=== PATIENT | female | born 1975 | race Caucasian/White ===

== ENCOUNTER 2016-10-08 09:26 | Observation (INO) | payer OTHER ==
[~2016-10-08 09:26] MED LIST: Buffered Lidocaine 1% SYR 3ML* 3 ML/SYR SYRINGE INTRADERM ONE; Dexamethasone IV* 4 MG/ML 1 ML (4 MG) IV SLOW PU ONE; Famotidine IV* 10 MG/ML 2 ML (20 mg) IV ONE
[2016-10-08] MEDS ORDERED: Famotidine IV* 10 MG/ML 2 ML (20 mg) ONE (09:30)
[2016-10-08] MEDS ORDERED: Dexamethasone IV* 4 MG/ML 1 ML (4 MG) ONE (09:30)
[2016-10-08 10:12] LABS: Hematocrit 41 % (35-47); Hemoglobin 13.6 g/dl (12.0-16.0); Mean Corpuscular HGB Conc 34 g/dl (31-36); Mean Corpuscular Hemoglobin 28 pg (27-31); Mean Corpuscular Volume 84 fL (80-97); Mean Platelet Volume 8 um3 (7.4-10.4); Red Blood Count 4.82 10^6/ul (4.0-5.4); Red Cell Distribution Width 13 % (10.5-15); White Blood Count 6.3 10^3/ul (3.5-10.8)
[2016-10-08] MEDS ORDERED: Bupivacaine 0.5% W/EPI SDV* 30 ML VIAL ONE (10:18)
[2016-10-08 10:20] LABS: Manual Entry Verification HAN0055; UR Preg Internal Control QC Line Present
[2016-10-08] MEDS ORDERED: Scopolamine 1.5 mg* PATCH TRANSDERM PRN (11:09)
[2016-10-08] MEDS ORDERED: HYDROmorphone INJ* 1 MG/ML CARPUJECT SYRINGE IV PRN (11:09)
[2016-10-08] MEDS ORDERED: Ondansetron INJ* 2 MG/ML VIAL IV PRN (11:09)
[2016-10-08] MEDS ORDERED: DiMENhydriNATE IV* 50 MG/ML VIAL IV PUSH PRN (11:09)
[2016-10-08] MEDS ORDERED: fentaNYL* 50 MCG/ML 2 ML VIAL (100 MCG VIAL) IV PRN (11:09)
[2016-10-08] MEDS ORDERED: fentaNYL* 50 MCG/ML 2 ML VIAL (100 MCG VIAL) ONE (13:09)
[2016-10-08] MEDS ORDERED: Scopolamine 1.5 mg* PATCH ONE (13:20)
[2016-10-08] MEDS ORDERED: Ondansetron INJ* 2 MG/ML VIAL ONE (13:24)
[2016-10-08] MEDS ORDERED: DiMENhydriNATE IV* 50 MG/ML VIAL ONE (13:34)
[2016-10-08] MEDS ORDERED: Acetaminophen TAB* 325 MG PO PRN (14:45)
[2016-10-08] MEDS ORDERED: Ibuprofen TAB* 600 MG PO PRN (14:45)
[2016-10-08 15:27] LABS: Hematocrit 35 % (35-47); Hemoglobin 11.9 g/dl (12.0-16.0)
[2016-10-08 16:51] VITALS: BP 98/59
--- NOTE | 2016-10-09 04:21 | OP ---
AMENDED REPORT NOW INCLUDES DATE OF OPERATION - ESIGNED BEFORE ADJUSTMENT * DATE OF OPERATION: 10/08/16 - ROOM #353 DATE OF : 73 SURGEON: Paulino Camp MD BRASS BURNISHER: Jovana Walker MD ANESTHESIOLOGIST: Gwyn Gillis MD ANESTHESIA: General endotracheal tube. PRE-OP DIAGNOSES: BRCA2 and family history of ovarian cancer. POST-OP DIAGNOSES: BRCA2 and family history of ovarian cancer plus omental adhesions. OPERATIVE PROCEDURE: Laparoscopy, BSO, and lysis of adhesions. ESTIMATED BLOOD LOSS: 50 cc. SPECIMEN: Includes both tubes and ovaries. FINDINGS: Include on the anterior abdominal wall, an omental adhesions to the anterior abdominal wall. Otherwise, both tubes and ovaries and the uterus appeared normal. The liver surface was smooth. The appendix appeared normal. DESCRIPTION OF PROCEDURE: The patient identified, procedure identified as a laparoscopy and bilateral salpingo-oophorectomy. The patient was taken to the operating room, prepped and draped in the usual fashion in the dorsal lithotomy position under general anesthesia. A sponge stick was placed in the vagina for manipulation. A small infra-umbilical incision was made and carried down through fat, fascia, and peritoneum. An Noman GelPOINT mini retractor was placed and the GelPOINT was placed on top of this. The abdomen was insufflated to 50 mmHg. The 30-degree 5-mm laparoscope was inserted. The LigaSure was inserted through another port site and the omental adhesion was taken down using the LigaSure. The right fallopian tube was grasped and the infundibulopelvic ligament was isolated, ligated using a LigaSure, and then incised. Broad ligament was carried down the same way to the level of the ovarian ligament. This was ligated using the LigaSure and then incised. Some bleeding was noted along the right pelvic side wall and this was found to be from the omental adhesion taken down earlier. This was irrigated and re- grasped and ligated using the bipolar cautery on the LigaSure. Good hemostasis was verified there. The left infundibulopelvic ligament was then isolated and was ligated using a LigaSure and brought down along the side of the ovary down to the level of the ovarian ligament and the tube. This was ligated using the LigaSure and then excised. The Endo Catch bag was placed through one of the trocar sites and both ovaries were placed within the bag. This was brought out through the incision with ease. The bag was opened and the ovaries were removed from the bag and sent for pathology. The GelPOINT mini was re-placed and good hemostasis was verified. Copious irrigation was utilized and suctioned out. The omental bleeding was reinspected and found to be hemostatic. All instruments were removed from the abdomen. The abdomen was deflated with CO2. The fascia was closed using 0 Polysorb in a running fashion and the skin was closed with 4-0 Polysorb in a subcuticular fashion and then glue was applied. All sponge and instrument counts were correct and the patient returned to the recovery room in stable condition. Sponge, instrument, and stick were removed from the vagina. [id number]/[facility] #: [id number] HAO
[2016-10-11] MEDS ORDERED: Scopolamine PATCH Remove* 1 NOTE MISC PATCH OFF ONE (11:10)
--- NOTE | 2016-10-23 02:53 | DS ---
CC: Primary Care Doctor DISCHARGE SUMMARY: DATE OF ADMISSION: 10/08/16 DATE OF DISCHARGE: 10/08/16 PRINCIPAL DIAGNOSES: BRCA2 and family history of ovarian cancer. POST-OP DIAGNOSES: BRCA2 and family history of ovarian cancer. DISPOSITION: The patient was discharged on Motrin and Tylenol, and was not to do any heavy lifting. Call for any fever, pain, or bleeding. HISTORY: This is a 41-year-old with breast cancer, has a BRCA2 mutation, her mother had ovarian cancer. She is having regular cycles. She wished to have risk- reductive surgery, removal of her ovaries. PAST MEDICAL HISTORY: Significant for a previous section and a first trimester miscarriage. MEDICAL PROBLEMS: Include migraine headaches; breast cancer; endometrial polyp removal; section, 2010; thyroidectomy in July of 2013; mastectomy in November of 2015. SOCIAL HISTORY: She does not smoke. REVIEW OF SYSTEMS: Noncontributory. PHYSICAL EXAMINATION: On admission shows blood pressure 112/64, pulse was 76, temp was 98.5. HEENT: Within normal limits. Neck was supple. Abdomen: Soft , nontender. Bowel sounds were normoactive. HOSPITAL COURSE: She was admitted on the , underwent a laparoscopic bilateral salpingo-oophorectomy and lysis of adhesions with 50 cc of blood loss. She tolerated the procedure well, went to recovery room without any complications. Her pathology specimen showed bilateral ovaries with multiple follicular cysts, hemorrhagic corpus luteum, paratubal cysts, fallopian tubes, and no abnormalities and no evidence of cancer or dysplasia. She went home on hospital day 0, day of her surgery, without any complications. [id number]/[facility] #: [id number] [facility]ripp
== END 2016-10-08 18:50 | disposition home or self-care (01) ==
LOC: OR 09:26 → SSU 14:47 → UNDOADMOB 14:47 → UNDODISOB 18:50
PROVIDERS: ADMIT Obstetrics & Gynecology; ATTEND Obstetrics & Gynecology
PROC: 0UT74ZZ Resection of Bilateral Fallopian Tubes, Percutaneous Endoscopic Approach (ICD-10-PCS; 2016-10-08)
PROC: 0UT24ZZ Resection of Bilateral Ovaries, Percutaneous Endoscopic Approach (ICD-10-PCS; principal; 2016-10-08 10:15)
DX: C50.919 Malignant neoplasm of unspecified site of unspecified female breast (principal); Z15.02 Genetic susceptibility to malignant neoplasm of ovary; Z80.41 Family history of malignant neoplasm of ovary
CPT/HCPCS: 36415; 81025; 85014; 85018; 85025; 86850; 86900; 86901; 88305; A9270-GY; G0378; J1100; J1240; J2405; J3010

== ENCOUNTER 2017-01-28 07:06 | Emergency (ER) | payer OTHER ==
[2017-01-28 07:26] VITALS: BP 117/64
--- NOTE | 2017-01-28 07:40 | UC ---
Skin Complaint HPI - HPI Summary HPI Summary: 41 YEAR OLD FEMALE PRESENTS WITH RASH X 3 DAYS. SHE HAS RECENTLY FLOWN BACK FROM [place]. FEELS WARM BUT NO NAUSEA. VOMITTING, DIARRHEA, OR HEADACHES - History of Current Complaint Chief Complaint: UCRash Time Seen by Provider: 01/28/17 07:27 Stated Complaint: RASH Hx Obtained From: Patient Hx Last Menstrual Period: 04/01/16 Onset/Duration: Sudden Onset Skin Exposure Onset/Duration: Days Ago Timing: Constant Onset Severity: Mild Current Severity: Moderate Location: Diffuse Aggravating: Touch Alleviating: Nothing Associated Signs & Symptoms: Positive: Fever - Allergy/Home Medications Allergies/Adverse Reactions: Allergies Allergy/AdvReac Type Severity Reaction Status Date / Time Oxycodone Allergy Severe See Comment Verified 10/08/16 09:45 Hydrocodone Allergy Intermediate SENSITIVITY Verified 10/08/16 09:45 Home Medications: Home Medications Acetaminophen [Acetaminophen ER] 650 mg PO 01/28/17 [History] Review of Systems Constitutional: Fever Skin: Rash Eyes: Negative ENT: Negative Respiratory: Negative Cardiovascular: Negative Gastrointestinal: Negative Genitourinary: Negative Motor: Negative Musculoskeletal: Negative Neurological: Negative All Other Systems Reviewed And Are Negative: Yes PMH/Surg Hx/FS Hx/Imm Hx - Surgical History Surgical History: Yes Surgery Procedure, Year, and Place: C SECTION- 2010-[facility]. 2004-REMOVE ENDOMETRIAL POLYP-[facility]. LEFT [place] [place] B/L mastectomy - Family History Known Family History: Positive: Hypertension, Other - [place] - Social History Alcohol Use: Weekly Alcohol Amount: 1-2 glasses of wine Substance Use Type: None Smoking Status (MU): Never Smoked Tobacco Have You Smoked in the Last Year: No - Immunization History Most Recent Influenza Vaccination: NONE Most Recent Tetanus Shot: 2013 Most Recent Pneumonia Vaccination: NA Physical Exam Triage Information Reviewed: Yes Appearance: Well-Appearing Vital Signs: Initial Vital Signs Temp 37.2 C 01/28/17 07:11 Pulse 97 01/28/17 07:11 Resp 18 01/28/17 07:11 BP 117/64 01/28/17 07:11 Pulse Ox 98 01/28/17 07:11 Vital Signs Reviewed: Yes Eye Exam: Normal ENT Exam: Normal Neck: Positive: Tenderness @ Respiratory Exam: Normal Cardiovascular Exam: Normal Abdominal Exam: Normal Neurological Exam: Normal Skin: Positive: rashes Course/Dx - Diagnoses Provider Diagnoses: RASH Discharge - Discharge Plan Condition: Stable Disposition: HOME Discharge Disposition Comment: HOME Prescriptions: Methylprednisolone [Medrol Dosepak 4 MG*] 4 mg PO .SEE KAYLYN INSTRUCTION #1 tab Triamcinolone 0.1% CREAM(NF) [Kenalog Cream 0.1%(NF)] 1 applic TOPICAL BID #60 tube Patient Education Materials: Acute Rash (ED) Referrals: Amador Villegas MD [Primary Care Provider] - 7 Days
== END 2017-01-28 07:54 | disposition home or self-care (01) ==
LOC: UCEAST 07:06
DX: R21 Rash and other nonspecific skin eruption (principal); Z88.5 Allergy status to narcotic agent
CPT/HCPCS: 99212; G0463

== ENCOUNTER 2017-04-08 19:19 | Emergency (ER) | payer OTHER ==
[2017-04-08 19:25] VITALS: BP 114/71
[2017-04-08] MEDS ORDERED: Ondansetron ODT TAB* 4 MG PO ONE (19:28)
--- NOTE | 2017-04-08 19:42 | UC ---
Headache HPI - HPI Summary HPI Summary: has the worst headache of her life---nausea and vomiting sudden onset at noon today - History Of Current Complaint Chief Complaint: UCHeadamark Stated Complaint: HEADACHE,NAUSEA Time Seen by Provider: 04/08/17 19:25 Hx Obtained From: Patient Hx Last Menstrual Period: 04/01/16 ?: No Onset/Duration: Sudden Onset, Lasting Hours Onset Of Symptoms: Sudden Initially Headache Was: "Worst Headache Ever" Pain Intensity: 10 Pain Scale Used: 0-10 Numeric Timing: Constant Character: Throbbing Location of Headache: Diffuse Aggravating Factor: Nothing Allevating Factors: Nothing Associated Signs And Symptoms: Positive: Nausea, Vomiting - Allergies/Home Medications Allergies/Adverse Reactions: Allergies Allergy/AdvReac Type Severity Reaction Status Date / Time Oxycodone Allergy Severe See Comment Verified 01/28/17 07:50 Hydrocodone Allergy Intermediate SENSITIVITY Verified 01/28/17 07:50 PMH/Surg Hx/FS Hx/Imm Hx Previously Healthy: No Endocrine History: Hypothyroidism Cancer History: Breast Cancer - Surgical History Surgical History: Yes Surgery Procedure, Year, and Place: C SECTION- 2010-[facility]. 2004-REMOVE ENDOMETRIAL POLYP-[facility]. LEFT THYROIDECTOMY 2012[place] [place]. B/L mastectomy - Family History Known Family History: Positive: Hypertension, Other - [place] - Social History Occupation: Unemployed Lives: With Family Alcohol Use: Weekly Alcohol Amount: 1-2 glasses of wine Substance Use Type: None Smoking Status (MU): Never Smoked Tobacco Have You Smoked in the Last Year: No - Immunization History Most Recent Influenza Vaccination: NONE Most Recent Tetanus Shot: 2013 Most Recent Pneumonia Vaccination: NA Review of Systems Constitutional: Negative Skin: Negative Eyes: Negative ENT: Negative Respiratory: Negative Cardiovascular: Negative Gastrointestinal: Vomiting, Nausea Genitourinary: Negative Motor: Negative Neurovascular: Negative Musculoskeletal: Negative Neurological: Headache Psychological: Negative Is Patient Immunocompromised?: Yes All Other Systems Reviewed And Are Negative: Yes Physical Exam Triage Information Reviewed: Yes Appearance: Well-Nourished, Ill-Appearing, Pain Distress Vital Signs: Initial Vital Signs Temp 97 F 04/08/17 19:21 Pulse 75 04/08/17 19:21 Resp 20 04/08/17 19:21 BP 114/71 04/08/17 19:21 Pulse Ox 100 04/08/17 19:21 Vital Signs Reviewed: Yes Eye Exam: Normal Eyes: Positive: Conjunctiva Clear ENT Exam: Normal ENT: Positive: Normal ENT inspection, Hearing grossly normal. Negative: Nasal congestion, Nasal drainage, Trismus, Muffled/hoarse voice Dental Exam: Normal Neck exam: Normal Neck: Positive: Supple, Nontender Respiratory Exam: Normal Respiratory: Positive: Chest non-tender, No respiratory distress, No accessory muscle use Cardiovascular Exam: Normal Cardiovascular: Positive: RRR, Pulses Normal, Brisk Capillary Refill Musculoskeletal Exam: Normal Musculoskeletal: Positive: Strength Intact, ROM Intact, No Edema Neurological Exam: Normal Neurological: Positive: Alert, Muscle Tone Normal Psychological Exam: Normal Skin Exam: Normal Headache Course/Dx - Course Course Of Treatment: Zofran, rest, to ed for higher level of care - Differential Dx/Diagnosis Differential Diagnosis/HQI/PQRI: CVA, Migraine, Subarachnoid Hemorrhage, Temporal Arteritis, Tension Headache, Viral Syndrome Provider Diagnoses: Headache - Physician Notifications Discussed Patient Care With: Mikael Santos Time Discussed With Above Provider: 19:30 Instructed by Provider To: Transfer Discharge - Discharge Plan Condition: Stable Disposition: OTHER Discharge Disposition Comment: to ed Patient Education Materials: Acute Headache (ED) Referrals: Amador Villegas MD [Primary Care Provider] - Additional Instructions: We recommend that you go to the emergency department for higher level of care
== END 2017-04-08 19:35 ==
LOC: UCEAST 19:19
DX: R51 Headache (principal); R11.2 Nausea with vomiting, unspecified; E03.9 Hypothyroidism, unspecified; Z85.3 Personal history of malignant neoplasm of breast; Z90.13 Acquired absence of bilateral breasts and nipples; Z88.5 Allergy status to narcotic agent
CPT/HCPCS: 99212; A9270-GY; G0463

== ENCOUNTER 2017-04-08 19:57 | Emergency (ER) | payer OTHER ==
[2017-04-08 21:19] LABS: Hematocrit 38 % (35-47); Mean Corpuscular HGB Conc 34 g/dl (31-36); Mean Corpuscular Hemoglobin 28 pg (27-31); Mean Corpuscular Volume 83 fL (80-97); Mean Platelet Volume 7 um3 (7.4-10.4); Red Blood Count 4.63 10^6/ul (4.0-5.4); Red Cell Distribution Width 13 % (10.5-15); White Blood Count 6.7 10^3/ul (3.5-10.8)
[2017-04-08 21:34] LABS: Albumin 4.4 g/dL (3.2-5.2); BUN/Creatinine Ratio 21.3 (8-20); Calcium 10.3 mg/dL (8.6-10.3); EGFR Non-African American 84.7 (>60); Potassium 3.9 mmol/L (3.5-5.0); Total Bilirubin 0.4 mg/dL (0.2-1.0); Total Protein 7.4 g/dL (6.4-8.9)
[2017-04-08 22:39] LABS: Erythrocyte Sed Rate 23 mm/Hr (0-14)
[2017-04-08] MEDS ORDERED: Ketorolac INJ* 30 MG/ML 1 ML VIAL IV PUSH ONE (23:38)
[2017-04-08] MEDS ORDERED: diPHENhydraMINE IV* 50 MG/ML 1 ml VIAL (BENADRYL) IV ONE (23:39)
[2017-04-08] MEDS ORDERED: Metoclopramide IV* 5 MG/ML 2 ML VIAL IV ONE (23:39)
[2017-04-09] MEDS ORDERED: Ondansetron ODT TAB* 4 MG PO ONE (01:44)
[2017-04-09 02:06] VITALS: BP 86/61
--- NOTE | 2017-04-09 05:57 | ED ---
Mary Larkin Emily, scribed for Mikael Santos MD on 04/08/17 at 2337 . Headache - HPI Summary HPI Summary: This patient is a 41 year old F presenting to [facility] referred by convenient care accompanied by family with a chief complaint of headache that started around 1300. Started gradually this afternoon. Pt took 2 acetaminophen 650mg. She has had previous migraines, but not regularly or with associated nausea. The CC is described as ache behind the eyes The patient rates the pain 8/10 in severity. Symptoms alleviated by nothing. Patient reports vomiting (twice), chills, and neck pain. Patient denies fever, diaphoresis, slurred speech, photophobia, abdominal pain, and leg pain. Patient denies head trauma. PMHx includes asthma, bilateral mastectomy, and bilateral oophorectomy. - History Of Current Complaint Chief Complaint: EDHeadache Stated Complaint: HEADACHE Time Seen by Provider: 04/08/17 23:20 Hx Obtained From: Patient Hx Last Menstrual Period: 04/01/16 Onset/Duration: Gradual Onset, Started hours ago, Still Present Currently Pain Is: Current Pain Scale(0-10)= - 8 Timing: Constant, Hours Location of Headache: Other: - Behind eyes Allevating Factors: Nothing Associated Signs And Symptoms: Vomiting, Other (Noted In Comments) - Chills, neck pain - Allergies/Home Medications Allergies/Adverse Reactions: Allergies Allergy/AdvReac Type Severity Reaction Status Date / Time Oxycodone Allergy Severe See Comment Verified 01/28/17 07:50 Hydrocodone Allergy Intermediate SENSITIVITY Verified 01/28/17 07:50 PMH/Surg Hx/FS Hx/Imm Hx Previously Healthy: No Endocrine/Hematology History: Reports: Hx Thyroid Disease - LEFT THYROID REMOVED - 2012 Denies: Hx Diabetes, Hx Sickle Cell Disease, Hx Anemia Cardiovascular History: Denies: Hx Hypertension, Other Cardiovascular Problems/Disorders Respiratory History: Denies: Hx Asthma, Hx Chronic Obstructive Pulmonary Disease (COPD), Other Respiratory Problems/Disorders GI History: Denies: Hx Jaundice, Hx Ulcer, Other GI Disorders History: Denies: Other Problems/Disorders Musculoskeletal History: Denies: Other Musculoskeletal History Sensory History: Denies: Hx Contacts or Glasses, Hx Hearing Aid Opthamlomology History: Denies: Hx Contacts or Glasses Neurological History: Reports: Hx Headaches - ONCE A MONTH, Hx Migraine - OCCASSIONALLY Denies: Other Neuro Impairments/Disorders - Cancer History Cancer Type, Location and Year: thyroid, lt breast ca - Surgical History Surgery Procedure, Year, and Place: C SECTION- 2010-[place]. 2004-REMOVE ENDOMETRIAL POLYP-. LEFT TH[place]ROID[place]OM[place] 2012[place] [place] B/L mastectomy. B/L oophorectomy Hx Anesthesia Reactions: No Infectious Disease History: No Infectious Disease History: Denies: Hx Clostridium Difficile, Hx Hepatitis, Hx Human Immunodeficiency Virus (HIV), Hx of Known/Suspected MRSA, Hx Shingles, Hx Tuberculosis, Hx Known/ Suspected VRE, Hx Known/Suspected VRSA, History Other Infectious Disease, Traveled Outside the [place] in Last 30 Days - Family History Known Family History: Positive: Hypertension, Other - [place] - Social History Occupation: Unemployed Lives: With Family Alcohol Use: Weekly Alcohol Amount: 1-2 glasses of wine Substance Use Type: Reports: None Smoking Status (MU): Never Smoked Tobacco Have You Smoked in the Last Year: No Review of Systems Positive: Chills. Negative: Fever, Skin Diaphoresis Negative: Photophobia Positive: Abdominal Pain, Vomiting Positive: Other - Negative leg pain Positive: Headache. Negative: Slurred Speech All Other Systems Reviewed And Are Negative: Yes Physical Exam - Summary Physical Exam Summary: The patient is well-nourished in no acute distress and in no acute pain. The skin is warm and dry and skin color reflects adequate perfusion. HEENT: The head is normocephalic and atraumatic. The pupils are equal and reactive. The conjunctivae are clear and without drainage. Nares are patent and without drainage. Mouth reveals moist mucous membranes and the throat is without erythema and exudate. The external ears are intact. The ear canals are patent and without drainage. The tympanic membranes are intact. Not photophobic. Neck is supple with full range of motion and non-tender. There are no carotid bruits. There is no neck vein distension. No nuchal rigidity. Respiratory: Chest is non-tender. Lungs are clear to auscultation and breath sounds are symmetrical and equal. Cardiovascular: Heart is regular rate and rhythm. There is no murmur or rub auscultated. There is no peripheral edema and pulses are symmetrical and equal. Abdomen: The abdomen is soft and non-tender. There are normal bowel sounds heard in all four quadrants and there is no organomegaly palpated. Musculoskeletal: There is no back pain noted. Extremities are non-tender with full range of motion. There is good capillary refill. There is no peripheral edema or calf tenderness elicited. Neurological: Patient is alert and oriented to person, place and time. The patient has symmetrical motor strength in all four extremities. Cranial nerves are grossly intact. Deep tendon reflexes are symmetrical and equal in all four extremities. Psychiatric: The patient has an appropriate affect and does not exhibit any anxiety or depression. Triage Information Reviewed: Yes Vital Signs On Initial Exam: Initial Vitals Temp Pulse Resp BP Pulse Ox 96.4 F 72 16 112/62 100 04/08/17 20:05 04/08/17 20:05 04/08/17 20:05 04/08/17 20:05 04/08/17 20:05 Vital Signs Reviewed: Yes - [place] Coma Scale Coma Scale Total: 15 Diagnostics - Vital Signs Vital Signs Temp Pulse Resp BP Pulse Ox 04/08/17 22:49 61 94 04/08/17 22:47 101/64 04/08/17 20:06 96.4 F 62 16 112/62 100 04/08/17 20:05 96.4 F 72 16 112/62 100 - Laboratory Lab Results: Lab Results 04/08/17 04/08/17 04/08/17 Range/Units 21:10 21:10 21:10 WBC 6.7 (3.5-10.8) 10^3/ul RBC 4.63 (4.0-5.4) 10^6/ul Hgb 13.0 (12.0-16.0) g/dl Hct 38 (35-47) % MCV 83 (80-97) fL MCH 28 (27-31) pg MCHC 34 (31-36) g/dl RDW 13 (10.5-15) % Plt Count 293 (150-450) 10^3/ul MPV 7 L (7.4-10.4) um3 Neut % (Auto) 70.2 (38-83) % Lymph % (Auto) 20.7 L (25-47) % Nance % (Auto) 7.4 (1-9) % Eos % (Auto) 1.2 (0-6) % Baso % (Auto) 0.5 (0-2) % Absolute Neuts (auto) 4.7 (1.5-7.7) 10^3/ul Absolute Lymphs (auto) 1.4 (1.0-4.8) 10^3/ul Absolute Monos (auto) 0.5 (0-0.8) 10^3/ul Absolute Eos (auto) 0.1 (0-0.6) 10^3/ul Absolute Basos (auto) 0 (0-0.2) 10^3/ul Absolute Nucleated RBC 0.01 10^3/ul Nucleated RBC % 0.1 ESR 23 H (0-14) mm/Hr INR (Anticoag Therapy) 0.88 L (0.89-1.11) Sodium 137 (133-145) mmol/L Potassium 3.9 (3.5-5.0) mmol/L Chloride 100 L (101-111) mmol/L Carbon Dioxide 31 (22-32) mmol/L Anion Gap 6 (2-11) mmol/L BUN 16 (6-24) mg/dL Creatinine 0.75 (0.51-0.95) mg/dL Est GFR ( Amer) 109.0 (>60) Est GFR (Non-Af Amer) 84.7 (>60) BUN/Creatinine Ratio 21.3 H (8-20) Glucose 115 H (70-100) mg/dL Calcium 10.3 (8.6-10.3) mg/dL Total Bilirubin 0.40 (0.2-1.0) mg/dL AST 19 (13-39) U/L ALT 22 (7-52) U/L Alkaline Phosphatase 65 (34-104) U/L Total Protein 7.4 (6.4-8.9) g/dL Albumin 4.4 (3.2-5.2) g/dL Globulin 3.0 (2-4) g/dL Albumin/Globulin Ratio 1.5 (1-3) Result Diagrams: 04/08/17 21:10 04/08/17 21:10 Lab Statement: Any lab studies that have been ordered have been reviewed, and results considered in the medical decision making process. - CT Head CT Interpretation: No Acute Changes - Findings: 1. There is no intracranial bleed, extra-axial fluid collection, mass effect, midline shift, hydrocephalus, acute territorial infarct or depressed skull fracture evident. 2. The visualized portions of the orbits, paranasal sinuses and mastoid air cells are grossly unremarkable. ED physician has reviewed this radiology report and agrees. CT Interpretation Completed By: Radiologist Headache Course/Dx - Course Course Of Treatment: This patient is a 41 year old F presenting to [facility] referred by convenient care accompanied by family with a chief complaint of headache that started around 1300. Started gradually this afternoon. Pt took 2 acetaminophen 650mg. She has had previous migraines, but not regularly or with associated nausea. The CC is described as ache behind the eyes The patient rates the pain 8/10 in severity. Symptoms alleviated by nothing. Patient reports vomiting (twice), chills, and neck pain. Patient denies fever, diaphoresis, slurred speech, photophobia, abdominal pain, and leg pain. Patient denies head trauma. PMHx includes asthma, bilateral mastectomy, and bilateral oophorectomy. Physical Exam Findings. Not photophobic. No nuchal rigidity. Medical Decision Making. The head CT read by radiologist. Findings: 1. There is no intracranial bleed, extra-axial fluid collection, mass effect, midline shift, hydrocephalus, acute territorial infarct or depressed skull fracture evident. 2. The visualized portions of the orbits, paranasal sinuses and mastoid air cells are grossly unremarkable. ED physician has reviewed this radiology report and agrees. In the ED course the patient was given Benadryl IV , Toradol Injection, Reglan IV, and Zofran. Patient will be discharged with follow up from Dr. Villegas. The patient is agreeable with this plan. - Diagnoses Differential Diagnosis/HQI/PQRI: Subarachnoid Hemorrhage Provider Diagnoses: Headache Discharge - Discharge Plan Condition: Stable Disposition: HOME Patient Education Materials: General Headache (ED) Referrals: Amador Villegas MD [Primary Care Provider] - 3 Days Additional Instructions: RETURN TO THE EMERGENCY DEPARTMENT FOR CHANGING OR WORSENING SYMPTOMS. The documentation as recorded by the Mary dale Emily accurately reflects the service I personally performed and the decisions made by , Mikael Santos MD.
--- NOTE | 2017-04-09 07:48 | RAD ---
INDICATION: "Worst headache of life" COMPARISON: None. TECHNIQUE: Contiguous axial sections of the brain were obtained from the skull base to the vertex without contrast. FINDINGS: The ventricles, cisterns and sulci are within normal limits. The camacho-white matter differentiation is adequately maintained and there is no sulcal effacement. No significant focal abnormality or mass effect is present. There is no evidence for intracranial hemorrhage. No significant focal osseous abnormality is present. The visualized portion of the paranasal sinuses and mastoid air cells appear clear. IMPRESSION: Normal CT of the brain.
== END 2017-04-09 02:07 | disposition home or self-care (01) ==
LOC: ED 19:57
DX: J45.909 Unspecified asthma, uncomplicated (principal); Z88.5 Allergy status to narcotic agent
CPT/HCPCS: 36415; 70450; 80053; 85025; 85610; 85652; 96374; 96375; 99283; A9270-GY; J1200; J1885; J2765

== ENCOUNTER 2017-10-06 06:31 | Day surgery (SDC) | payer OTHER ==
[~2017-10-06 06:31] MED LIST changes: +Buffered Lidocaine 0.9% SYRIN* 5 ML/SYR SYRINGE INTRADERM ONE; -Buffered Lidocaine 1% SYR 3ML* 3 ML/SYR SYRINGE INTRADERM ONE; -Dexamethasone IV* 4 MG/ML 1 ML (4 MG) IV SLOW PU ONE; -Famotidine IV* 10 MG/ML 2 ML (20 mg) IV ONE
[2017-10-06] MEDS ORDERED: Bupivacaine 0.25% SDV* 30 ML ONE (07:13)
[2017-10-06] MEDS ORDERED: Midazolam* 1 MG/ML 2 ML VIAL (2 MG) ONE (07:18)
[2017-10-06] MEDS ORDERED: fentaNYL* 50 MCG/ML 2 ML VIAL (100 MCG VIAL) ONE (07:18)
[2017-10-06] MEDS ORDERED: Ondansetron INJ* 2 MG/ML VIAL ONE (07:25)
[2017-10-06] MEDS ORDERED: Dexamethasone IV* 4 MG/ML 1 ML (4 MG) ONE (07:35)
[2017-10-06] MEDS ORDERED: Naloxone* 0.4 MG/ML 1 ML VIAL IV PRN (08:06)
[2017-10-06 08:34] VITALS: BP 100/69
--- NOTE | 2017-10-06 18:07 | OP ---
DATE OF OPERATION: 10/06/17 [facility] DATE OF : 73 SURGEON: Trent Thornton MD PLANNING AIDE: YONATHAN Guzman ANESTHESIOLOGIST: Dr. Hartley. ANESTHESIA: Local MAC. PRE-OP DIAGNOSIS: Right carpal tunnel syndrome. POST-OP DIAGNOSIS: Right carpal tunnel syndrome. OPERATIVE PROCEDURE: Right open carpal tunnel release. INDICATIONS: Ginger has had progressive symptoms. She has had electrodiagnostic studies. We talked about risks and benefits. She wanted to proceed with surgery. ESTIMATED BLOOD LOSS: 2 mL. COMPLICATIONS: None. FINDINGS: As expected. DESCRIPTION OF PROCEDURE: Ginger was seen in the preoperative holding area. The correct side, site and procedure were identified. We came back to the operating room where the arm was prepped and draped in the usual fashion. A time-out was performed. I began by making a 2 to 3 cm incision in a standard location for an open carpal tunnel release. Dissection was carried down through the subcutaneous tissue and palmar fascia. The transverse carpal ligament was released just off the radial aspect off the hook of the hamate. The release was carried out from distal to proximal. When I got proximal, I released the subcutaneous tissue and fascia and retracted this volarly and ulnarly with Iveth retractor. I then released the remainder of the transverse carpal ligament and the distal antebrachial fascia under direct visualization to a level several centimeters proximal to the wrist flexion crease. I then checked the decompression. There was absolutely no compression on the nerve distally or proximally. We irrigated out the wound. The skin was closed with 4-0 nylon. The wound was dressed with Xeroform, 4x4's, sterile Webril, and an Malcom wrap. She was woken up and taken to the recovery room in stable condition. [id number]/[facility] #: [id number] [facility]
== END 2017-10-06 08:55 | disposition home or self-care (01) ==
LOC: OREAST 06:31
PROVIDERS: ATTEND Orthopaedic Surgery Hand Surgery
DX: G56.01 Carpal tunnel syndrome, right upper limb (principal); E03.9 Hypothyroidism, unspecified; R01.1 Cardiac murmur, unspecified; Z85.3 Personal history of malignant neoplasm of breast; Z85.850 Personal history of malignant neoplasm of thyroid
CPT/HCPCS: J1100; J2250; J2405; J3010

== ENCOUNTER → 2019-01-04 10:50 | Day surgery (SDC) | payer OTHER ==
[~2019-01-04 10:50] MED LIST changes: +Benzocaine/Butamben/Tetracain (CETACAINE - SINGLE USE) 5 gm TOPICAL ONE; -Buffered Lidocaine 0.9% SYRIN* 5 ML/SYR SYRINGE INTRADERM ONE; +Buffered Lidocaine 1% SYRIN* 1 ML/SYRINGE INTRADERM ONE; +Dexamethasone IV* 4 MG/ML 1 ML (4 MG) IV SLOW PU ONE; +Dexamethasone IV* 4 MG/ML 1 ML (4 MG) ONE; +DiMENhydriNATE IV* 50 MG/ML VIAL ONE; +Famotidine IV* 10 MG/ML 2 ML (20 mg) IV ONE; +Famotidine IV* 10 MG/ML 2 ML (20 mg) ONE; +Ketorolac INJ* 30 MG/ML 1 ML VIAL ONE; +Lactated Ringers 1000 ML Bag* 1,000 ML IV SCH; +Levalbuterol 0.63MG/3ML NEB* UNIT OF USE INH ONE; +Lidocaine 2% PF * 5 ML VIAL ONE; +Midazolam* 1 MG/ML 5 ML VIAL (5 MG) ONE; +Ondansetron ODT TAB* 4 MG ONE; +Ondansetron TAB* 4 MG PO ONE; +PROCHLORPERAZINE INJ 5 MG/ML 2 ML VIAL ONE; +Propofol* 10 MG/ML 20 ML BTL ONE; +Succinylcholine* 20 MG/ML 10 ML VIAL ONE; +fentaNYL* 50 MCG/ML 2 ML VIAL (100 MCG VIAL) ONE
[2019-01-04 17:20] VITALS: BP 122/75
--- NOTE | 2019-01-04 20:21 | PRO ---
BRONCHOSCOPY REPORT: DATE OF PROCEDURE: 01/04/19 - [facility] PROCEDURE PERFORMED: Bronchoscopy with endobronchial ultrasound-guided fine needle aspiration of mediastinal and hilar nodes. PREPROCEDURAL DIAGNOSES: 1. Lymphadenopathy. 2. History of breast cancer. ANESTHESIA: General anesthesia. ANESTHESIOLOGIST: Dr. Holloway. DESCRIPTION OF PROCEDURE: Informed consent was obtained from the patient prior to the procedure after all the risks and benefits were thoroughly explained. Appropriate time-out was performed prior to the procedure.The patient was intubated with size 8.5 endotracheal tube. The patient was lying supine on the operating room table. A flexible Olympus bronchoscope was inserted through ET tube for airway inspection. ET tube positioning confirmed to be 2 cm above the level of tammy. No endobronchial lesions were noted. Bronchoscope was then withdrawn. EBUS bronchoscope was then inserted. Station R4 was accessed with 5 passes. Last pass would reveal lymphatic tissue with granulomas. Station 7 was also accessed with 6 passes. Rapid on-site evaluation revealed lymphatic tissue and evidence of granulomas on the last pass. L4 was also accessed with two passes. R10 was accessed with three passes. No malignant cells were noted on rapid on-site evaluation. Rest of the specimen was placed in CytoLyt. The patient tolerated the procedure well. The patient was extubated and seen in Recovery in optimal condition. [id number]/[facility] #: [id number] [facility]
== END | disposition home or self-care (01) ==
LOC: OR 10:50
PROVIDERS: ATTEND Internal Medicine
DX: R59.0 Localized enlarged lymph nodes (principal); L92.9 Granulomatous disorder of the skin and subcutaneous tissue, unspecified; Z85.3 Personal history of malignant neoplasm of breast; Z85.850 Personal history of malignant neoplasm of thyroid; Z88.5 Allergy status to narcotic agent
CPT/HCPCS: 88172; 88173; 88177; 88305; A9270-GY; J0330; J0780; J1100; J1240; J1885; J2250; J2704; J3010

== ENCOUNTER 2019-01-19 06:38 | Inpatient (IN) | payer OTHER ==
[~2019-01-19 06:38] MED LIST changes: -Benzocaine/Butamben/Tetracain (CETACAINE - SINGLE USE) 5 gm TOPICAL ONE; -Dexamethasone IV* 4 MG/ML 1 ML (4 MG) ONE; -DiMENhydriNATE IV* 50 MG/ML VIAL ONE; -Famotidine IV* 10 MG/ML 2 ML (20 mg) ONE; -Ketorolac INJ* 30 MG/ML 1 ML VIAL ONE; -Levalbuterol 0.63MG/3ML NEB* UNIT OF USE INH ONE; -Lidocaine 2% PF * 5 ML VIAL ONE; -Midazolam* 1 MG/ML 5 ML VIAL (5 MG) ONE; -Ondansetron ODT TAB* 4 MG ONE; -Ondansetron TAB* 4 MG PO ONE; -PROCHLORPERAZINE INJ 5 MG/ML 2 ML VIAL ONE; -Propofol* 10 MG/ML 20 ML BTL ONE; +Scopolamine 1.5 mg* PATCH TRANSDERM ONE; -Succinylcholine* 20 MG/ML 10 ML VIAL ONE; -fentaNYL* 50 MCG/ML 2 ML VIAL (100 MCG VIAL) ONE
--- OUTSIDE RECORDS SUMMARY | 2019-01-19 06:40 | XMS REPORT | Continuity of Care Document ---
:1975 External Reference #:[id number] Author Name Shreya Yee Care Team Providers Name Role Phone Amador Villegas MD Primary Care Physician Unavailable Payers Date Identification Numbers Payment Provider Subscriber Policy Number: [id number] [employer] Emeka Cultrera PayID: [id number] [address] [place] [address] Expires: 2017 Policy Number: [id number] [employer] Emeka Cultrera PayID: [id number] [address] [place] [address] Family History Date Family Member(s) Observation Comments General Colitis General Psoriasis General Mother was on Lyrica for Nephew with methylmalonic 10 years aciduria Onset: (age 45 General Breast Cancer Maternal Aunt Years) Father due to Prostate () - At age 67 Cancer Mother Ovarian Cancer Mother due to Ovarian () - At age 75 Cancer Mother Rheumatoid Arthritis Mother Fibromyalgia Siblings 1 Social History Type Date Description Comments Sex Unknown Marital Status Lives With Spouse Lives With Children Occupation Unemployed ETOH Use 07/13/2017 Currently consumes alcohol Tobacco Use Start: Unknown Patient has never smoked Recreational Drug Use Never Used Drugs Smoking Status Reviewed: 01/11/19 Patient has never smoked Exercise Type/Frequency Exercises regularly Allergies, Adverse Reactions, Alerts Active Allergies Reaction Severity Comments Date Oxycodone Short of breath 07/13/2017 Hydrocodone dizziness, nausea 07/13/2017 Medications Active Medications SIG Qnty Indications Ordering Date Provider Meloxicam take one tab 30tabs R70.0 Gwyn Mathur, 12/14/2018 7.5mg Tablets twice daily as M.D. needed for pain, avoid other nsaids Levothyroxine Sodium 1 by mouth every Unknown day 75mcg Tablets Omeprazole 1 tab daily Unknown 20mg Capsules DR Calcium + D3 1 by mouth twice Unknown daily [id number] Tablets Multivitamin Adults once daily Unknown Tablets Melatonin 1 tab by mouth at Unknown 10mg Capsules bedtime as needed for insomnia History Medications Tramadol HCL 1-2 tablets by 30tabs rTent Thornton MD 10/06/2017 - 50mg mouth every 6 12/14/2018 Tablets hours as needed pain Vital Signs Date Vital Result Comment 01/11/2019 2:29pm Height 61 inches 5'1" Weight 150.12 lb Heart Rate 106 /min BP Systolic Sitting 112 mmHg Rue reg cuff BP Diastolic Sitting 72 mmHg Rue reg cuff Respiratory Rate 18 /min O2 % BldC Oximetry 98 % On Ra BMI (Body Mass Index) 28.4 kg/m2 01/11/2019 10:40am Height 61 inches 5'1" Weight 153.00 lb Heart Rate 72 /min Respiratory Rate 16 /min Body Temperature 97.2 F BMI (Body Mass Index) 28.9 kg/m2 12/29/2018 6:55am Height 61 inches 5'1" Weight 153.00 lb Heart Rate 72 /min BP Systolic Sitting 118 mmHg Rue regular cuff BP Diastolic Sitting 80 mmHg Rue regular cuff Respiratory Rate 12 /min O2 % BldC Oximetry 96 % BMI (Body Mass Index) 28.9 kg/m2 Neck Circumference in inches 13.25 12/14/2018 8:00am Height 61 inches 5'1" Weight 151.38 lb Heart Rate 84 /min BP Systolic Sitting 118 mmHg BP Diastolic Sitting 78 mmHg Pain Level 8 O2 % BldC Oximetry 98 % BMI (Body Mass Index) 28.6 kg/m2 10/19/2017 8:32am Height 61 inches 5'1" Weight 150.00 lb Heart Rate 62 /min Respiratory Rate 15 /min Body Temperature 98.2 F Pain Level 2 BMI (Body Mass Index) 28.3 kg/m2 09/20/2017 2:28pm Height 61 inches 5'1" Weight 150.25 lb Heart Rate 91 /min BP Systolic 110 mmHg BP Diastolic 70 mmHg Respiratory Rate 16 /min Body Temperature 97.2 F Pain Level 0 BMI (Body Mass Index) 28.4 kg/m2 08/12/2017 8:26am Height 61 inches 5'1" Weight 145.00 lb Heart Rate 86 /min BP Systolic 102 mmHg BP Diastolic 72 mmHg Respiratory Rate 16 /min Body Temperature 98.9 F Pain Level 3 BMI (Body Mass Index) 27.4 kg/m2 07/13/2017 11:16am Height 61 inches 5'1" Weight 143.00 lb Heart Rate 93 /min BP Systolic 98 mmHg BP Diastolic 64 mmHg Body Temperature 97.1 F Pain Level 1 BMI (Body Mass Index) 27.0 kg/m2 Results Test Date Facility Test Result H/L Range Note Laboratory test 01/04/2019 [facility] Cytology Non-Systems Administration Analyst SEE RESULT [address] [place] [address] [phone] Laboratory test 12/26/2018 [facility] Point of Care 73 mg/dL N 70-100 [address] [place] [address] [phone] Laboratory test 12/19/2018 [facility] Pathology See Comment [address] [address] [phone] Cytology Non-Systems Administration Analyst SEE RESULT BELOW 4 Laboratory test 12/19/2018 [facility] Cytology SEE RESULT [address] Non-Systems [place] [address] [phone] Anca AB Ser If 12/14/2018 [facility] C-Anca Negative Negative [address] [place] [address] [phone] P-Anca Negative Negative 6 Laboratory test 12/14/2018 [facility] Rheumatoid 35 IU/mL High <[address] [place] [address] [phone] Cyclic Citrullinated Pep Igg <15.6 U 7 Celiac Hla 12/14/2018 [facility] Hla-Dqa1 SEE BELOW [address] [place] [address] [phone] Hla-DQB1 SEE BELOW 9 Celiac Gene Pairs Present? No Celiac Gene Interpretation See Comment 10 Hla B27 12/14/2018 [facility] Hla B27 Negative [address] [place] [address] [phone] Hla B27 Interp See Comment 12 Laboratory test 12/14/2018 [facility] Erythrocyte Sed 32 mm/Hr High 0-[address] [place] [address] [phone] C Reactive Protein 5.76 mg/L N <8.01 Creatine Kinase(CK) 70 U/L N 10-223 Ssa/SSB Abs Igg 12/14/2018 [facility] SS-A/Ro Antibody <0.2 U [address] [place] [address] [phone] SS-B/La Antibody <0.2 U 14 Celiac Panel 12/14/2018 [facility] Tissue Transglutaminase <1.2 U/mL [address] [place] [address] [phone] Immunoglobulin A 92 mg/dL 61 - 356 Celiac Interpretation See Comment 16 Laboratory 12/14/2018 [facility] Aso Negative <200 17 test finding [address] (Antistreptolysin O) IU/mL Iu/[place] [address] Titer [phone] Nuclear AB (Kim) By Ifa Igg <1:80 (Negative) 18 Tick-Borne Panel 12/14/2018 [facility] Babesia Negative Negative PCR Blood [address] [place] [address] [phone] Babesia ducani Negative Negative Babesia divergens/Mo-1 Negative Negative 19 Anaplasma phagocytophilum Negative Negative Ehrlichia chaffeensis Negative Negative Ehrlichia ewingii/canis Negative Negative Ehrlichia muris eauclairensis Negative Negative 20 B. miyamotoi PCR, B Negative Negative 21 Laboratory 12/14/2018 [facility] Lyme Screen W/ Negative Negative test finding [address] [place] [address] [phone] Laboratory 01/02/2018 [facility] Hemoglobin A1c 5.5 % N 4.0- 5.6 22 test finding [address] (Glyco HGB) [place] [address] [phone] Laboratory 04/29/2016 [facility] Surgical SEE RESULT 23, test finding [address] Pathology BELOW [address] [place] [address] [phone] 1 SEE RESULT BELOW Name: SOCORRO PAZ : [address]: Brittny Almanza MD Acct: [id number] Unit: [id number] AGE: 43 Location: OR Re01/04/19 SEX: F Status: REG SDC SPEC: [id number] KRANTHI: 01/04/19-[address]: Brittny Almanza MD REQ: [id number] RECD: 01/04/19-1526 STATUS: SOUT _ ORDERED: FNA-IMG GUID BX/4, CY ADEQ-ADDL P/8, LEVEL 4/4, CYTO ADEQ-1ST P/4 FINAL DIAGNOSIS ( 1. Lymph node, R4, Endobronchial ultrasound guided fine needle aspiration: -- Benign ciliated bronchial epithelium, few loosely formed epithelioid granulomas, connective tissue, and lymphoid tissue. --No evidence of metastatic neoplasia identified. 2. 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 -- Benign lymphoid tissue. -- No evidence of metastatic neoplasia identified. 3. Lymph node, L4, Endobronchial ultrasound guided fine needle aspiration: -- Benign ciliated bronchial epithelium only. 4. Lymph node, R10, Endobronchial ultrasound guided fine needle aspiration: -- Benign ciliated bronchial epithelium, fragments of dense fibrous connective tissue, and lymphoid tissue. 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 The development of a sarcoid-like noncaseating granulomatous lymphadenitis in patient's with a history of or in the process of breast cancer CONTINUED ON NEXT PAGE DEPARTMENT OF PATHOLOGY, [address] [place] [address] Edi Pace M.D. Director [facility] # [id number] RUN DATE: 01/05/19 [facility] LAB LIVE PAGE 2 Patient: SOCORRO PAZ [id number] (Continued) SPECIMEN COMMENTS (Continued) therapy is well-documented and occurs in approximately 6.5% of patients with incidental positive PET scan findings (some demonstrate high SUV). While a malignant process not represented here cannot be entirely excluded, the findings can be considered compatible with the clinical and imaging findings. A cell block was prepared in the evaluation of this specimen. Smears and cell block reveal similar findings. #1. LYMPH NODE - US GUIDED ENDOBRONCHIAL R-4 LYMPH NODE FINE NEEDLE ASPIRATION, #2. LYMPH NODE - US GUIDED ENDOBRONCHIAL ST-7 LYMPH NODE FINE NEEDLE ASPIRATION, #3. LYMPH NODE - US GUIDED ENDOBRONCHIAL L-4 LYMPH NODE FINE NEEDLE ASPIRATION, #4. LYMPH NODE - US GUIDED ENDOBRONCHIAL R-10 LYMPH NODE FINE NEEDLE ASPIRATION CLINICAL HISTORY #1) R-4 lymph node. #2) Station-7 lymph node. #3) L-4 lymph node. #4) R-10 Lymph node. IMMEDIATE INTERPRETATION 1. Passes 1 2-inadequate, passes 2-4 adequate. 2. Passes 1-4 inadequate, passes 5 6-adequate. 3. Passes 1 2-inadequate. 4. Passes 1 3-inadequate, pass 2-adequate. GROSS DESCRIPTION #1) US guided endobronchial fine needle aspiration x 5 pass(es) with 9 alcohol fixed slides and needle rinse in formalin for cell block. #2) US guided endobronchial fine needle aspiration x 6 pass(es) with 12 alcohol fixed slides and needle rinse in formalin for cell block. #3) US guided endobronchial fine needle aspiration x 2 pass(es) with 6 alcohol fixed slides and needle rinse in formalin for cell block. #4) US guided endobronchial fine needle aspiration x 3 pass(es) with 6 alcohol fixed slides and needle rinse in formalin for cell block. CONTINUED ON NEXT PAGE DEPARTMENT OF PATHOLOGY, [address] [place] [address] Edi Pace M.D. Director [facility] # [id number] RUN DATE: 01/05/19 [facility] LAB LIVE PAGE 3 Patient: SOCORRO PAZ [id number] (Continued) GROSS DESCRIPTION (Continued) Signed by and Reported on: Edi Pace MD 02/16 1344 END OF REPORT DEPARTMENT OF PATHOLOGY, [address] [place] [address] Edi Pace M.D. Director [facility] # [id number] 2 Acds Block 1 Operator: [id number] H2BR HER2, Breast Tumor, FISH,Tissue Result Summary: Negative Interpretation: There is no evidence of HER2 (ERBB2) gene amplification in this tumor sample. According to current ASCO/CAP guidelines for HER2 testing in breast cancer, dual-probe in situ hybridization (ALVIN) results indicating a HER2/centromere ratio less than 2.0 and an average HER2 copy number less than 4.0 signals per cell are interpreted as ALVIN negative ("Group 5") (1). References: 1. Jessica et al., J Clin Oncol, 36(20):7374-6800, 2018 Result: nuc alvin(D17Z1,HER2)x2 HER2/D17Z1 ratio: 1.08 Average HER2 signals per cell: 2.0 Average D17Z1 signals per cell: 1.9 Reason for Referral: adenocarcinoma Specimen: Tissue, Paraffin Source: Lymph node Tissue ID: [id number] Fixative: Formalin Method: FISH using probes for HER2 (17q12) and a chromosome 17 centromere (D17Z1) control probe ([employer] Two technologists score signals in 60 total nuclei from invasive or metastatic tumor after confirmation of probe performance by concurrent controls. Additional Information and Disclaimer: Laboratory Developed Test (LDT). This test was developed and its performance characteristics determined by [facility] in a manner consistent with CLIA requirements. It is intended as an adjunct to existing prognostic clinical and pathologic information for breast cancer patients. This test is not intended to diagnose or screen for breast cancer. Since only a portion of the tumor was tested, it is possible that this result may not represent the entire tumor population. Per ASCO/CAP guidelines, HER2 FISH test results are valid for non-decalcified paraffin embedded specimens fixed in 10% neutral buffered formalin between 6 and 72 hours. Results from specimens fixed outside these parameters should be interpreted accordingly. Result Released By: Gwyn Gore M.D., Ph.D. Test Performed by: [address] [address] 4 SEE RESULT BELOW Name: JACKSONSOCORROMiguel Angel PINTO : [address]: Nicholas MCMANUS Acct: [id number] Unit: [id number] AGE: 43 Location: Re12/19/18 SEX: F Status: REG REF SPEC: [id number] KRANTHI: 12/19/18-[address]: Nicholas MCMANUS REQ: [id number] RECD: 12/19/18-1534 STATUS: VISHNU WALSH DR: Jacoby Millan MD _ ORDERED: FNA-IMG GUID BX, LEVEL 4, CYTO ADEQ-1ST P, IMMUNO-FIRST, IMMUNO- ADDL, IMMUNO-QUANT/3 ADDENDUM HER2, Breast Tumor, FISH, Tissue has been performed at [facility], [place], [place]. The testing reveals: Received: 24 Dec 2018 15:43 Reported: 29 Dec 2018 16:01 Result Summary: Negative Interpretation There is no evidence of HER2 (ERBB2) gene amplification in this tumor sample. According to current ASCO/CAP guidelines for HER2 testing in breast cancer, dual-probe in situ hybridization (ALVIN) results indicating a HER2/centromere ratio less than 2.0 and an average HER2 copy number less than 4.0 signals per cell are interpreted as ALVIN negative ("Group 5") (1). References: 1. Jessica et al., J Clin Oncol, 36(20):5192-1269, 2018 Result: nuc alvin(D17Z1,HER2)x2 HER2/D17Z1 ratio: 1.08 Average HER2 signals per cell: 2.0 Average D17Z1 signals per cell: 1.9 Reason for Referral: adenocarcinoma Specimen: Tissue, Paraffin Source: Lymph node Tissue ID: [id number] CONTINUED ON NEXT PAGE DEPARTMENT OF PATHOLOGY, [address] [place] [address] Edi Pace M.D. Director [facility] # [id number] RUN DATE: 01/02/19 [facility] LAB LIVE PAGE 2 Patient: LESLIEDAVISSOCORRO [id number] (Continued) ADDENDUM (Continued) Fixative: Formalin Method FISH using probes for HER2 (17q12) and a chromosome 17 centromere (D17Z1) control probe ([employer] Two technologists score signals in 60 total nuclei from invasive or metastatic tumor after confirmation of probe performance by concurrent controls. Disclaimer Laboratory Developed Test (LDT). This test was developed and its performance characteristics determined by [facility] in a manner consistent with CLIA requirements. It is intended as an adjunct to existing prognostic clinical and pathologic information for breast cancer patients. This test is not intended to diagnose or screen for breast cancer. Since only a portion of the tumor was tested, it is possible that this result may not represent the entire tumor population. Per ASCO/CAP guidelines, HER2 FISH test results are valid for non-decalcified paraffin embedded specimens fixed in 10% neutral buffered formalin between 6 and 72 hours. Results from specimens fixed outside these parameters should be interpreted accordingly. Released By Gwyn Gore M.D., Ph.D. Addendum Signed (signature on file) Edi Pace MD 1132 Addendum: The following immunochemical stains are performed with appropriate controls on formalin fixed cell block material. ER positive, 2???3 +, greater than 90% of tumor AZ positive, 2???3 +, 5% of tumor HER-2 indeterminate (2+) Thyroglobulin negative TTF-1 negative The morphologic features and immunochemical staining pattern supports a diagnosis of metastatic ductal adenocarcinoma of breast. Gene amplification studies for HER-2 by FISH are pending and will be reported in an addendum. Dr. Garcia has reviewed this case and concurs. CONTINUED ON NEXT PAGE DEPARTMENT OF PATHOLOGY, [address] [place] [address] Edi Pace M.D. Director [facility] # [id number] RUN DATE: 01/02/19 [facility] LAB LIVE PAGE 3 Patient: SOCORRO PAZ [id number] (Continued) ADDENDUM (Continued) Addendum Signed (signature on file) Edi Pace MD 0942 FINAL DIAGNOSIS Axillary lymph node, left, ultrasound guided fine needle aspiration: -- Malignant. -- Metastatic adenocarcinoma. See comment. Comment: The aspirate smears demonstrate disordered variably cohesive cytologically malignant epithelial elements with round to oval nuclei with irregular nuclear contours and prominent nucleoli. Specific features of thyroid carcinoma are not identified. The morphologic features are most compatible with metastatic ductal carcinoma of breast origin. Confirmatory histochemical stains including hormone receptor studies are pending on formalin fixed cell block material and will be reported in an addendum. A cell block was prepared in the evaluation of this specimen. Smears and cell block reveal similar findings. A. AXILLARY LEFT - US GUIDED LEFT AXILLARY LYMPH NODE FINE NEEDLE ASPIRATION CLINICAL HISTORY Intraductal carcinoma left breast, thyroid cancer. CONTINUED ON NEXT PAGE DEPARTMENT OF PATHOLOGY, [address] [place] [address] Edi Pace M.D. Director [facility] # [id number] RUN DATE: 01/02/19 [facility] LAB LIVE PAGE 4 Patient: JACKSONSOCORROMiguel Angel LERMAIA [id number] (Continued) IMMEDIATE INTERPRETATION (Continued) IMMEDIATE INTERPRETATION Pass 1-adequate, pass 2-additional material GROSS DESCRIPTION Ultrasound guided, fine needle aspiration x 2 passes with 1 alcohol fixed slide(s) and needle rinse in formalin for cell block. Signed by and Reported on: Edi Pace MD 1053 END OF REPORT DEPARTMENT OF PATHOLOGY, [address] [place] [address] Edi Pace M.D. Director [facility] # [id number] 5 SEE RESULT BELOW Name: SOCORRO PAZ : [address]: Nicholas MCMANUS Acct: [id number] Unit: [id number] AGE: 43 Location: SP Re12/19/18 SEX: F Status: REG REF SPEC: [id number] KRANTHI: 12/19/18-7205 [facility] DR: Nicholas MCMANUS REQ: [id number] RECD: 12/19/181535 STATUS: VISHNU WALSH DR: Jacoby Millan MD _ ORDERED: FNA-IMG GUID BX, LEVEL 4, CYTO ADEQ-1ST P, IMMUNO-FIRST, IMMUNO- ADDL, IMMUNO-QUANT/3 ADDENDUM Addendum: The following immunochemical stains are performed with appropriate controls on formalin fixed cell block material. ER positive, 2???3 +, greater than 90% of tumor AZ positive, 2???3 +, 5% of tumor HER-2 indeterminate (2+) Thyroglobulin negative TTF-1 negative The morphologic features and immunochemical staining pattern supports a diagnosis of metastatic ductal adenocarcinoma of breast. Gene amplification studies for HER-2 by FISH are pending and will be reported in an addendum. Dr. Garcia has reviewed this case and concurs. Addendum Signed (signature on file) Edi Pace MD 0942 FINAL DIAGNOSIS Axillary lymph node, left, ultrasound guided fine needle aspiration: -- Malignant. -- Metastatic adenocarcinoma. See comment. CONTINUED ON NEXT PAGE DEPARTMENT OF PATHOLOGY, [address] [place] [address] Edi Pace M.D. Director [facility] # [id number] RUN DATE: 12/21/18 [facility] LAB LIVE PAGE 2 Patient: SOCORRO PAZ [id number] (Continued) FINAL DIAGNOSIS (Continued) Comment: The aspirate smears demonstrate disordered variably cohesive cytologically malignant epithelial elements with round to oval nuclei with irregular nuclear contours and prominent nucleoli. Specific features of thyroid carcinoma are not identified. The morphologic features are most compatible with metastatic ductal carcinoma of breast origin. Confirmatory histochemical stains including hormone receptor studies are pending on formalin fixed cell block material and will be reported in an addendum. A cell block was prepared in the evaluation of this specimen. Smears and cell block reveal similar findings. A. AXILLARY LEFT - US GUIDED LEFT AXILLARY LYMPH NODE FINE NEEDLE ASPIRATION CLINICAL HISTORY Intraductal carcinoma left breast, thyroid cancer. IMMEDIATE INTERPRETATION Pass 1-adequate, pass 2-additional material GROSS DESCRIPTION Ultrasound guided, fine needle aspiration x 2 passes with 1 alcohol fixed slide(s) and needle rinse in formalin for cell block. Signed by and Reported on: Edi Pace MD 1053 END OF REPORT DEPARTMENT OF PATHOLOGY, [address] [place] [address] Edi Pace M.D. Director [facility] # [id number] 6 Negative for cANCA and pANCA patterns by immunofluorescence. ADDITIONAL INFORMATION This test was developed and its performance characteristics determined by [facility] in a manner consistent with CLIA requirements. This test has not been cleared or approved by the U.S. Food and Drug Administration. Test Performed by: [facility] - [address] [address] 7 REFERENCE VALUE <20.0 (Negative) Test Performed by: [facility] - [address] [address] 8 RESULT: 01:02,01:02 REFERENCE VALUE Not Applicable 9 RESULT: 06:02,06:04 DQ Serologic Equivalent: 6,6 REFERENCE VALUE Not Applicable 10 The absence of HLA celiac permissive genes would make the presence of celiac disease unlikely. ADDITIONAL INFORMATION Method: Molecular typing of HLA antigens performed using reverse SSOP and/or SSP methods, reported as serological equivalents and low to medium resolution molecular values. Performing Laboratory CLIA# [id number] Test Performed by: [facility] - [address] [address] 11 REFERENCE VALUE Not Applicable 12 RESULT: HLA-B27 antigen was not detected. ADDITIONAL INFORMATION Method: Flow Cytometry Performing Laboratory CLIA# [id number] Test Performed by: [facility] - [facility] [address] [place] [address] 13 REFERENCE VALUE <1.0 (Negative) 14 REFERENCE VALUE <1.0 (Negative) Test Performed by: [facility] [place] [address] 15 REFERENCE VALUE <4.0 (Negative) Test Performed by: [facility] [place] [address] 16 Negative serology. Celiac disease unlikely. However, approximately 10% of patients with celiac disease are seronegative. Also, patients who are already adhering to a gluten-free diet may be seronegative. If celiac disease is highly clinically suspected, consider HLA-DQ typing. Test Performed by: [facility] [place] [address] 17 Normal values may vary with age, season and geographic area. Titers above upper limits may be indicative of infection, however only a two dilution rise in titer is required to be considered significant. ASO titer will usually rise above upper limits within one week of exposure, increase to peak levels at 3-5 weeks and return to baseline level at 6-12 twelve months. 18 <1:80 (Negative) REFERENCE VALUE <1:80 (Negative) Test Performed by: [facility] [email or web address] [address] [place] [address] 19 ADDITIONAL INFORMATION This test was developed and its performance characteristics determined by [facility] in a manner consistent with CLIA requirements. This test has not been cleared or approved by the U.S. Food and Drug Administration. 20 ADDITIONAL INFORMATION This test was developed and its performance characteristics determined by [facility] in a manner consistent with CLIA requirements. This test has not been cleared or approved by the U.S. Food and Drug Administration. 21 ADDITIONAL INFORMATION This test was developed and its performance characteristics determined by [facility] in a manner consistent with CLIA requirements. This test has not been cleared or approved by the U.S. Food and Drug Administration. Test Performed by: [facility] - [address] [address] 22 Therapeutic target for the treatment of diabetes mellitus patients is <7% HBA1C, and in selective patients <6.0%. Please refer to [place] [employer] diabetic care guidelines for further information. 23 [id number] 24 SEE RESULT BELOW Name: SOCORRO PAZ : [address]: Janak Pina MD Acct: [id number] Unit: [id number] AGE: 40 Location: [facility] Re04/29/16 SEX: F Status: REG [facility] SPEC: [id number] KRANTHI: 04/29/160833 [facility] DR: Janak Pina MD REQ: [id number] RECD: 04/29/168 STATUS: VISHNU WALSH DR: Janak Villegas MD _ ORDERED: LEVEL I/2, LEVEL IV/2 COMMENTS: [id number] FINAL DIAGNOSIS 1. Breast, right biology internship, excision: Foreign body as described above (Gross diagnosis). 2. Skin, right breast, scar revision: Skin and subcutaneous tissue with foreign body giant cell reaction. 3. Breast, left biology internship, excision: Foreign body as described above (Gross diagnosis). 4. Skin, left breast, scar revision: Skin and subcutaneous tissue with foreign body giant cell reaction. PRE-OPERATIVE DIAGNOSIS Status post bilateral mastectomies GROSS DESCRIPTION 1. The specimen is received fresh labeled, Right Breast Tissue Pick Pulling Machine Tender, and consists of a 14.5 x 12.0 by up to 5.0 cm translucent ovoid saline implant. The outer surface is granular camacho-white. The following inscription is identified: [facility] 550. The remaining inscription is indecipherable. Per established hospital medical staff protocol, no tissue is submitted. Gross only. 2. The specimen is received in formalin labeled, Right Mastectomy Scar, and consists of an 18.5 by up to 0.6 cm enriquez-pink wrinkled elongated skin ellipse excised to a maximum depth of 1.8 cm. Received separately in the same container is a 3.4 x 3.1 x 0.7 cm aggregate of yellow irregular fibrofatty soft tissue fragments. The skin is inked and textiles sales representative CONTINUED ON NEXT PAGE * ML=Testing performed at Main Lab DEPARTMENT OF PATHOLOGY, [address] [place] [address] Edi Pace M.D. Director [facility] # [id number] RUN DATE: 04/30/16 [facility] LAB LIVE PAGE 2 Patient: SOCORRO PAZ [id number] (Continued) GROSS DESCRIPTION (Continued) GROSS DESCRIPTION (Continued) sections are submitted in one cassette. 3. The specimen is received fresh labeled, Left Breast Tissue Pick Pulling Machine Tender, and consists of a 14.5 x 12.0 by up to 5.0 cm translucent ovoid saline implant. The outer surface is granular camacho-white. The following inscription is identified: [facility] [address] The remaining inscription is indecipherable. Per established hospital medical staff protocol, no tissue is submitted. Gross only. 4. The specimen is received in formalin labeled, Left Mastectomy Scar, and consists of a 20.0 by up to 0.8 cm enriquez-pink wrinkled elongated skin ellipse excised to a maximum depth of 0.9 cm. Received separately in the same container is a 4.4 x 3.5 x 0.8 cm aggregate of yellow irregular fibrofatty soft tissue fragments. The skin is inked and textiles sales representative sections are submitted in one cassette. Signed (signature on file) Luciana Garcia MD 1517 END OF REPORT * ML=Testing performed at Main Lab DEPARTMENT OF PATHOLOGY, [address] [place] [address] Edi Pace M.D. Director [facility] # [id number] Procedures Date Code Description Status 08/15/2018 540359952 Bone Mineral Density Test Completed 10/06/2017 81117 Carpal Tunnel Release Completed 10/06/2017 28257 Carpal Tunnel Release Completed 12/15/2015 07377 Mastectomy Simple Complete Completed 10/27/2015 94978085 Mammogram Completed 10/23/2015 93381542 Mammogram Completed 05/02/2013 80241 ECHO Transthoracic, Real-Time 2D With Doppler And Completed Color Flow Encounters Type Date Location Provider Dx Diagnosis Office Visit 12/29/2018 Pulmonology And Brittny Archie, R59.0 Localized enlarged 7:30a Sleep Services Of lymph nodes [facility] Office Visit 12/14/2018 Rheumatology Gwyn Mathur, R70.0 Elevated erythrocyte 8:00a [facility] sedimentation rate R76.0 Raised antibody titer M06.4 Inflammatory polyarthropathy M25.551 Pain in right hip M25.561 Pain in right knee M54.5 Low back pain 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 bilateral upper limbs Plan of Treatment Future Appointment(s):01/25/2019 3:45 pm - Maggi Miller MD at [facility]01/19/2019 8:30 am - YONATHAN Watkins at [facility]01/19/2019 8:30 am - Maggi Miller MD at [facility]01/25/2019 3:40 pm - Gwyn Mathur M.D. at [facility]01/11/2019 - Brittny Almanza, MDR59.0 Localized enlarged lymph nodesFollow up:PRN
--- OUTSIDE RECORDS SUMMARY | 2019-01-19 06:40 | XMS REPORT | Continuity of Care Document ---
:1975 External Reference #:[id number] Author Name Johnna Luna Care Team Providers Name Role Phone Amador Villegas MD Primary Care Physician Unavailable Payers Date Identification Numbers Payment Provider Subscriber Policy Number: [id number] [employer] Emeka Cultrera PayID: [id number] [address] [place] [address] Expires: 2017 Policy Number: [id number] [employer] Emeka Cultrera PayID: [id number] [address] [place] [address] Family History Date Family Member(s) Observation Comments [...] D3 1 by mouth twice Unknown daily [id number] Tablets Multivitamin Adults once daily Unknown Tablets Melatonin 1 tab by mouth at Unknown 10mg Capsules bedtime as needed for insomnia History Medications Tramadol HCL 1-2 tablets by 30tabs Trent Thornton MD 10/06/2017 - 50mg mouth every 6 12/14/2018 Tablets hours as needed pain Vital Signs Date Vital Result Comment 01/11/2019 10:40am Height 61 inches 5'1" Weight [...] Result H/L Range Note Laboratory test 01/04/2019 [facility] Cytology Non-[facility] SEE RESULT [address] [place] [address] [phone] Laboratory test 12/26/2018 [facility] Point of Care 73 mg/dL N 70-[address] Glucose [place], [place] [address] [phone] Laboratory test 12/19/2018 [facility] Pathology See Comment [address] Miscellaneous Test [place], [place] [address] [phone] Cytology Non-[facility] SEE RESULT BELOW 4 Laboratory test 12/19/2018 [facility] Cytology SEE RESULT [address] Non-[facility] BELOW [place], [place] [address] [phone] Anca AB Ser If 12/14/2018 [facility] C-Anca Negative Negative [address] [place], [place] [address] [phone] P-Anca Negative Negative 6 Laboratory test 12/14/2018 [facility] Rheumatoid 35 IU/mL High <[address] [place] [address] [phone] Cyclic Citrullinated Pep Igg <15.6 U 7 Celiac Hla 12/14/2018 [facility] Hla-Dqa1 SEE BELOW [address] [place] [address] [phone] Hla-DQB1 SEE BELOW 9 Celiac Gene Pairs Present? No Celiac Gene Interpretation See Comment 10 Hla B27 12/14/2018 [facility] Hla B27 Negative [address] [place] [address] [phone] Hla B27 Interp See Comment 12 Laboratory test 12/14/2018 [facility] Erythrocyte Sed 32 mm/Hr High 0-[address] [place] [address] [phone] C Reactive Protein 5.76 mg/L N <8.01 Creatine Kinase(CK) 70 U/L N 10-223 Ssa/SSB Abs Igg 12/14/2018 [facility] SS-A/Ro Antibody <0.2 U [address] [place] [address] [phone] SS-B/La Antibody <0.2 U 14 Celiac Panel 12/14/2018 [facility] Tissue Transglutaminase <1.2 U/mL [address] [place] [address] [phone] Immunoglobulin A 92 mg/dL 61 - 356 Celiac Interpretation See Comment 16 Laboratory 12/14/2018 [facility] Aso Negative <200 17 test finding [address] (Antistreptolysin O) IU/mL Iu/[place] [address] Titer [phone] Nuclear AB (Kim) By Ifa Igg <1:80 (Negative) 18 Tick-Borne Panel 12/14/2018 [facility] Babesia Negative Negative PCR Blood [address] [place] [address] [phone] Babesia ducani Negative Negative Babesia divergens/Mo-1 Negative Negative 19 Anaplasma phagocytophilum Negative Negative Ehrlichia chaffeensis Negative Negative Ehrlichia ewingii/canis Negative Negative Ehrlichia muris eauclairensis Negative Negative 20 B. miyamotoi PCR, B Negative Negative 21 Laboratory 12/14/2018 [facility] Lyme Screen W/ Negative Negative test finding [address] [place] [address] [phone] Laboratory 01/02/2018 [facility] Hemoglobin A1c 5.5 % N 4.0- 5.6 22 test finding [address] (Glyco HGB) [place] [address] [phone] Laboratory 04/29/2016 [facility] Surgical SEE RESULT 23, test finding [address] Pathology BELOW 24 [place] [address] [phone] 1 SEE RESULT BELOW Name: SOCORRO PAZ : [address]: Brittny Almanza MD Acct: [id number] Unit: [id number] AGE: 43 Location: OR Re01/04/19 SEX: F Status: REG [facility] SPEC: [id number] KRANTHI: 01/04/19-[address]: Brittny Almanza MD REQ: [id number] RECD: 01/04/19152 STATUS: SOUT _ ORDERED: FNA-IMG GUID BX/4, [...] CONTINUED ON NEXT PAGE DEPARTMENT OF PATHOLOGY, [address] [place] [address], [place] [address] Edi Pace M.D. Director [facility] # [id number] RUN DATE: 01/05/19 [facility] LAB LIVE PAGE 2 Patient: SOCORRO PAZ [id number] (Continued) SPECIMEN COMMENTS (Continued) therapy is well-documented [...] CONTINUED ON NEXT PAGE DEPARTMENT OF PATHOLOGY, [address] [place] [address] Edi Pace M.D. Director [facility] # [id number] RUN DATE: 01/05/19 [facility] LAB LIVE PAGE 3 Patient: SOCORRO PAZ [id number] (Continued) GROSS DESCRIPTION (Continued) Signed by and Reported on: Edi Pace MD 02/16 1344 END OF REPORT DEPARTMENT OF PATHOLOGY, [address] [place] [address] Edi Pace M.D. Director [facility] # [id number] 2 Appeals Coordinator: [id number] H2BR HER2, Breast Tumor, FISH,Tissue Result [...] 1. Jessica et al., J Clin Oncol, 36(20):3393-5325, 2018 Result: nuc alvin(D17Z1,HER2)x2 HER2/D17Z1 ratio: 1.08 Average HER2 signals per cell: 2.0 Average D17Z1 signals per cell: 1.9 Reason for Referral: adenocarcinoma Specimen: Tissue, Paraffin Source: Lymph node Tissue ID: [id number] Fixative: Formalin Method: FISH using probes for HER2 (17q12) and a chromosome 17 centromere (D17Z1) control probe ([employer], [employer] Two technologists score signals in 60 total nuclei from invasive or metastatic tumor after confirmation of probe performance by concurrent controls. Additional Information and Disclaimer: Laboratory Developed Test (LDT). This test was developed and its performance characteristics determined by [facility] in a manner consistent with CLIA [...] Gwyn Gore M.D., Ph.D. Test Performed by: [address] [address] 4 SEE RESULT BELOW Name: SOCORRO PAZ : [address]: Nicholas MCMANUS Acct: [id number] Unit: [id number] AGE: 43 Location: Re12/19/18 SEX: F Status: REG REF SPEC: [id number] KRANTHI: 12/19/18-[address]: Nicholas MCMANUS REQ: [id number] RECD: 12/19/183574 STATUS: VISHNU WALSH DR: Jacoby Millan MD _ ORDERED: FNA-IMG GUID BX, LEVEL 4, CYTO ADEQ-1ST P, IMMUNO-FIRST, IMMUNO- ADDL, IMMUNO-QUANT/3 ADDENDUM HER2, Breast Tumor, FISH, Tissue has been performed at [facility], [place], [place]. The testing reveals: Received: 24 Dec [...] 1. Jessica et al., J Clin Oncol, 36(20):0921-3716, 2018 Result: nuc alvin(D17Z1,HER2)x2 HER2/D17Z1 ratio: 1.08 Average HER2 signals per cell: 2.0 Average D17Z1 signals per cell: 1.9 Reason for Referral: adenocarcinoma Specimen: Tissue, Paraffin Source: Lymph node Tissue ID: [id number] CONTINUED ON NEXT PAGE DEPARTMENT OF PATHOLOGY, [address] [place] [address] Edi Pace M.D. Director [facility] # [id number] RUN DATE: 01/02/19 [facility] LAB LIVE PAGE 2 Patient: MITCHELLSJDAVISSOCORRO MILLIE [id number] (Continued) ADDENDUM (Continued) Fixative: Formalin Method FISH using probes for HER2 (17q12) and a chromosome 17 centromere (D17Z1) control probe ([employer] Two technologists score signals in 60 total nuclei from invasive or metastatic tumor after confirmation of probe performance by concurrent controls. Disclaimer Laboratory Developed Test (LDT). This test was developed and its performance characteristics determined by [facility] in a manner consistent with CLIA [...] 2???3 +, greater than 90% of tumor OK positive, 2???3 +, 5% of tumor HER-2 indeterminate (2+) Thyroglobulin negative TTF-1 negative The morphologic features and immunochemical staining pattern supports a diagnosis of metastatic ductal adenocarcinoma of breast. Gene amplification studies for HER-2 by FISH are pending and will be reported in an addendum. Dr. Garcia has reviewed this case and concurs. CONTINUED ON NEXT PAGE DEPARTMENT OF PATHOLOGY, [address] [place] [address] Edi Pace M.D. Director [facility] # [id number] RUN DATE: 01/02/19 [facility] LAB LIVE PAGE 3 Patient: SOCORRO PAZ [id number] (Continued) ADDENDUM (Continued) Addendum Signed (signature on file) dEi Pace MD 0942 FINAL DIAGNOSIS Axillary lymph [...] CONTINUED ON NEXT PAGE DEPARTMENT OF PATHOLOGY, [address] [place] [address] Edi Pace M.D. Director [facility] # [id number] RUN DATE: 01/02/19 [facility] LAB LIVE PAGE 4 Patient: SOCORRO PAZ [id number] (Continued) IMMEDIATE INTERPRETATION (Continued) IMMEDIATE INTERPRETATION Pass 1-adequate, pass 2-additional material GROSS DESCRIPTION Ultrasound guided, fine needle aspiration x 2 passes with 1 alcohol fixed slide(s) and needle rinse in formalin for cell block. Signed by and Reported on: Edi Pace MD 1053 END OF REPORT DEPARTMENT OF PATHOLOGY, [address] [place] [address] Edi Pace M.D. Director [facility] # [id number] 5 SEE RESULT BELOW Name: SOCORRO PAZ : [address]: Nicholas MCMANUS Acct: [id number] Unit: [id number] AGE: 43 Location: SP Re12/19/18 SEX: F Status: REG REF SPEC: [id number] KRANTHI: 12/19/18-[address]: Nicholas MCMANUS REQ: [id number] RECD: 12/19/18 STATUS: VISHNU WALSH DR: Jacoby Millan MD _ ORDERED: FNA-IMG GUID BX, LEVEL 4, CYTO ADEQ-1ST P, IMMUNO-FIRST, IMMUNO- ADDL, IMMUNO-QUANT/3 ADDENDUM Addendum: The following immunochemical stains are performed with appropriate controls on formalin fixed cell block material. ER positive, 2???3 +, greater than 90% of tumor OK positive, 2???3 +, 5% of tumor HER-2 [...] CONTINUED ON NEXT PAGE DEPARTMENT OF PATHOLOGY, [address] [place] [address] Edi Pace M.D. Director [facility] # [id number] RUN DATE: 12/21/18 [facility] LAB LIVE PAGE 2 Patient: LESLIEDAVISSOCORRO MILLIE [id number] (Continued) FINAL DIAGNOSIS (Continued) Comment: The aspirate [...] 1053 END OF REPORT DEPARTMENT OF PATHOLOGY, [address] [place] [address] Edi Pace M.D. Director [facility] # [id number] 6 Negative for cANCA and pANCA patterns by immunofluorescence. ADDITIONAL INFORMATION This test was developed and its performance characteristics determined by [facility] in a manner consistent with CLIA requirements. This test has not been cleared or approved by the U.S. Food and Drug Administration. Test Performed by: [facility] - [address] [address] 7 REFERENCE VALUE <20.0 (Negative) Test Performed by: [facility] - [address] [address] 8 RESULT: 01:02,01:02 REFERENCE VALUE Not Applicable 9 RESULT: 06:02,06:04 DQ Serologic Equivalent: 6,6 REFERENCE VALUE Not Applicable 10 The absence of HLA celiac permissive genes would make the presence of celiac disease unlikely. ADDITIONAL INFORMATION Method: Molecular typing of HLA antigens performed using reverse SSOP and/or SSP methods, reported as serological equivalents and low to medium resolution molecular values. Performing Laboratory CLIA# [id number] Test Performed by: [facility] - [facility] [address] [place] [address] 11 REFERENCE VALUE Not Applicable 12 RESULT: HLA-B27 antigen was not detected. ADDITIONAL INFORMATION Method: Flow Cytometry Performing Laboratory IA# [id number] Test Performed by: [facility] - [facility] [address] [place] [address] 13 REFERENCE VALUE <1.0 (Negative) 14 REFERENCE VALUE <1.0 (Negative) Test Performed by: [facility] [place] [address] 15 REFERENCE VALUE <4.0 (Negative) Test Performed by: [facility] [place] [address] 16 Negative serology. Celiac disease unlikely. However, approximately 10% of patients with celiac disease are seronegative. Also, patients who are already adhering to a gluten-free diet may be seronegative. If celiac disease is highly clinically suspected, consider HLA-DQ typing. Test Performed by: [facility] [place] [address] 17 Normal values may vary with age, [...] REFERENCE VALUE <1:80 (Negative) Test Performed by: [facility] [place] [address] 19 ADDITIONAL INFORMATION This test was developed and its performance characteristics determined by [facility] in a manner consistent with CLIA requirements. This test has not been cleared or approved by the U.S. Food and Drug Administration. 20 ADDITIONAL INFORMATION This test was developed and its performance characteristics determined by [facility] in a manner consistent with CLIA requirements. This test has not been cleared or approved by the U.S. Food and Drug Administration. 21 ADDITIONAL INFORMATION This test was developed and its performance characteristics determined by [facility] in a manner consistent with CLIA requirements. This test has not been cleared or approved by the U.S. Food and Drug Administration. Test Performed by: [facility] - [address] [address] 22 Therapeutic target for the treatment of diabetes mellitus patients is <7% HBA1C, and in selective patients <6.0%. Please refer to [place] [employer] diabetic care guidelines for further information. 23 [id number] 24 SEE RESULT BELOW Name: SOCORRO PAZ : [address]: Janak Pina MD Acct: [id number] Unit: [id number] AGE: 40 Location: [facility] Re04/29/16 SEX: F Status: REG [facility] SPEC: [id number] KRANTHI: 04/29/16-[address] [facility] [address]: Janak Pina MD REQ: [id number] RECD: 04/29/161238 STATUS: VISHNU WALSH DR: Janak Villegas MD _ ORDERED: LEVEL I/2, LEVEL IV/2 COMMENTS: [id number] FINAL DIAGNOSIS 1. Breast, right tea bag packer, excision: Foreign body as described above (Gross diagnosis). 2. Skin, right breast, scar revision: Skin and subcutaneous tissue with foreign body giant cell reaction. 3. Breast, left tea bag packer, excision: Foreign body as described above (Gross diagnosis). 4. Skin, left breast, scar revision: Skin and subcutaneous tissue with foreign body giant cell reaction. PRE-OPERATIVE DIAGNOSIS Status post bilateral mastectomies GROSS DESCRIPTION 1. The specimen is received fresh labeled, Right Breast Tissue Raw Scales Operator, and consists of a 14.5 x 12.0 by up to 5.0 cm translucent ovoid saline implant. The outer surface is granular camacho-white. The following inscription is identified: [facility] [employer]. The remaining inscription is indecipherable. Per established [...] tissue fragments. The skin is inked and career representative CONTINUED ON NEXT PAGE * ML=Testing performed at Main Lab DEPARTMENT OF PATHOLOGY, [address] [place] [address] Edi Pace M.D. Director [facility] # [id number] RUN DATE: 04/30/16 [facility] LAB LIVE PAGE 2 Patient: SOCORRO PAZ [id number] (Continued) GROSS DESCRIPTION (Continued) GROSS DESCRIPTION (Continued) sections are submitted in one cassette. 3. The specimen is received fresh labeled, Left Breast Tissue Raw Scales Operator, and consists of a 14.5 x 12.0 by up to 5.0 cm translucent ovoid saline implant. The outer surface is granular camacho-white. The following inscription is identified: [facility]. The remaining inscription is indecipherable. Per established [...] tissue fragments. The skin is inked and career representative sections are submitted in one cassette. Signed (signature on file) Luciana Garcia MD 1517 END OF REPORT * ML=Testing performed at Main Lab DEPARTMENT OF PATHOLOGY, [address] [place] [address] Edi Pace M.D. Director [facility] # [id number] Procedures Date Code Description Status 08/15/2018 [id number] Bone Mineral Density Test Completed 10/06/2017 86960 Carpal Tunnel Release Completed 10/06/2017 97647 Carpal Tunnel Release Completed 12/15/2015 53631 Mastectomy Simple Complete Completed 10/27/2015 10820485 Mammogram Completed 10/23/2015 78073413 Mammogram Completed 05/02/2013 53347 ECHO Transthoracic, Real-Time 2D With Doppler And Completed Color Flow Encounters Type Date Location Provider Dx Diagnosis Office Visit 12/29/2018 Pulmonology And Brittny Almanza, R59.0 Localized enlarged 7:30a Sleep Services Of lymph nodes [facility] Office Visit 12/14/2018 Rheumatology Gwyn Mathur, R70.0 [...] Maggi Miller MD at [facility]01/19/2019 8:30 am - YONATHAN Watkins at [facility]01/19/2019 8:30 am - Maggi Miller MD at [facility]01/25/2019 3:40 pm - Gwyn Mathur M.D. at [facility]01/11/2019 - Maggi Miller, MDR59.0 Localized enlarged lymph nodesFollow up:post opN63.20 Unspecified lump in the left breast, unspecified quadrant
--- OUTSIDE RECORDS SUMMARY | 2019-01-19 06:41 | XMS REPORT | Continuity of Care Document ---
:1975 External Reference #:[id number] Author Name Shreya Yee Care Team Providers Name Role Phone Amador Villegas MD Primary Care Physician Unavailable Payers Date Identification Numbers Payment Provider Subscriber Policy Number: [id number] [employer] Emeka Cultrera PayID: [id number] [address] [place] [address] Expires: 2017 Policy Number: [id number] [employer] Insurance Emeka Cultrera PayID: [id number] [address] [place] [address] Family History Date Family Member(s) Observation Comments General Colitis General Psoriasis General Mother was on Lyrica for 10 Nephew with methylmalonic years aciduria Father due to Prostate Cancer () - At age 67 Mother Ovarian Cancer Mother due to Ovarian Cancer () - At age 75 Mother Rheumatoid Arthritis Mother Fibromyalgia Siblings 1 Social History Type Date Description Comments Sex Unknown Marital Status Lives With Spouse Lives With Children Occupation Unemployed ETOH Use 07/13/2017 Currently consumes alcohol Tobacco Use Start: Unknown Patient has never smoked Recreational Drug Use Never Used Drugs Smoking Status Reviewed: 12/29/18 Patient has never smoked Exercise Type/Frequency Exercises regularly Allergies, Adverse Reactions, Alerts Active Allergies Reaction Severity Comments Date Oxycodone Short of breath 07/13/2017 Hydrocodone dizziness, nausea 07/13/2017 Medications Active Medications SIG Qnty Indications Ordering Provider Date Meloxicam take one tab 30tabs R70.0 Gwyn Mathur, 12/14/2018 7.5mg Tablets twice daily as M.D. needed for pain, avoid other nsaids Levothyroxine Sodium 1 by mouth Unknown 75mcg every day Tablets Omeprazole Unknown 20mg Capsules DR History Medications Tramadol HCL 1-2 tablets by 30tabs Trent Thornton MD 10/06/2017 - 50mg mouth every 6 12/14/2018 Tablets hours as needed pain Vital Signs Date Vital Result Comment 12/29/2018 6:55am Height 61 inches 5'1" Weight [...] Test Result H/L Range Note Laboratory test 12/26/2018 [facility] Point of Care 73 mg/dL N 70-[address] [place] [address] [phone] Laboratory test 12/19/2018 [facility] Cytology SEE RESULT [address] Non-Educational Advisor BELOW [place], [place] [id number] [phone] Anca AB Ser If 12/14/2018 [facility] C-Anca Negative Negative [address] [place], [place] [address] [phone] P-Anca Negative Negative 3 Laboratory test 12/14/2018 [facility] Rheumatoid 35 IU/mL High <[address] Factor [place], [place] [address] [phone] Cyclic Citrullinated Pep Igg <15.6 U 4 Celiac Hla 12/14/2018 [facility] Hla-Dqa1 SEE BELOW [address] [place] [address] [phone] Hla-DQB1 SEE BELOW 6 Celiac Gene Pairs Present? No Celiac Gene Interpretation See Comment 7 Hla B27 12/14/2018 [facility] Hla B27 Negative [address] [place], [place] [id number] [phone] Hla B27 Interp See Comment 9 Laboratory test 12/14/2018 [facility] Erythrocyte Sed 32 mm/Hr High 0-[address] [place] [address] [phone] C Reactive Protein 5.76 mg/L N <8.01 Creatine Kinase(CK) 70 U/L N 10-223 Ssa/SSB Abs Igg 12/14/2018 [facility] SS-A/Ro Antibody <0.2 U [address] [place] [address] [phone] SS-B/La Antibody <0.2 U 11 Celiac Panel 12/14/2018 [facility] Tissue Transglutaminase <1.2 U/mL [address] [place] [address] [phone] Immunoglobulin A 92 mg/dL 61 - 356 Celiac Interpretation See Comment 13 Laboratory 12/14/2018 [facility] Aso Negative <[address] (Antistreptolysin O) IU/mL Iu/[place] [address] Titer [phone] Nuclear AB (Kim) By Ifa Igg <1:80 (Negative) 15 Tick-Borne Panel 12/14/2018 [facility] Babesia Negative Negative PCR Blood [address] microti PCR [place], [place] [address] [phone] Babesia ducani Negative Negative Babesia divergens/Mo-1 Negative Negative 16 Anaplasma phagocytophilum Negative Negative Ehrlichia chaffeensis Negative Negative Ehrlichia ewingii/canis Negative Negative Ehrlichia muris eauclairensis Negative Negative 17 B. miyamotoi PCR, B Negative Negative 18 Laboratory 12/14/2018 [facility] Lyme Screen W/ Negative Negative test finding [address] [place] [address] [phone] Laboratory 01/02/2018 [facility] Hemoglobin A1c 5.5 % N 4.0- 5.6 19 test finding [address] (Glyco HGB) [place] [address] [phone] Laboratory 04/29/2016 [facility] Surgical SEE RESULT 20, test finding [address] Pathology BELOW 21 [place] [address] [phone] Stage Electrician Helper: [id number] 2 SEE RESULT BELOW Name: SOCORRO PAZ : [address]: Nicholas MCMANUS Acct: [id number] Unit: [id number] AGE: 43 Location: Re12/19/18 SEX: F Status: REG REF SPEC: [id number] KRANTHI: 12/19/18-[address]: Nicholas MCMANUS REQ: [id number] RECD: 12/19/18 STATUS: VISHNU WALSH DR: Jacoby Millan MD _ ORDERED: FNA-IMG GUID BX, LEVEL 4, CYTO ADEQ-1ST P, IMMUNO-FIRST, IMMUNO- ADDL, IMMUNO-QUANT/3 ADDENDUM Addendum: The following immunochemical stains are performed with appropriate controls on formalin fixed cell block material. ER positive, 2???3 +, greater than 90% of tumor ME positive, 2???3 +, 5% of tumor HER-2 [...] CONTINUED ON NEXT PAGE DEPARTMENT OF PATHOLOGY, [address] [place] [address] Edi Pace M.D. Director [facility] # [id number] RUN DATE: 12/21/18 [facility] LAB LIVE PAGE 2 Patient: JACKSONSOCORRO [id number] (Continued) FINAL DIAGNOSIS (Continued) Comment: The aspirate [...] 1053 END OF REPORT DEPARTMENT OF PATHOLOGY, [address] [place] [id number] Edi Pace M.D. Director [facility] # [id number] 3 Negative for cANCA and pANCA patterns by immunofluorescence. ADDITIONAL INFORMATION This test was developed and its performance characteristics determined by [facility] in a manner consistent with CLIA requirements. This test has not been cleared or approved by the U.S. Food and Drug Administration. Test Performed by: [facility] - [address] [address] 4 REFERENCE VALUE <20.0 (Negative) Test Performed by: [facility] - [address] [address] 5 RESULT: 01:02,01:02 REFERENCE VALUE Not Applicable 6 RESULT: 06:02,06:04 DQ Serologic Equivalent: 6,6 REFERENCE VALUE Not Applicable 7 The absence of HLA celiac permissive genes would make the presence of celiac disease unlikely. ADDITIONAL INFORMATION Method: Molecular typing of HLA antigens performed using reverse SSOP and/or SSP methods, reported as serological equivalents and low to medium resolution molecular values. Performing Laboratory CLIA# [id number] Test Performed by: [facility] - [address] [address] 8 REFERENCE VALUE Not Applicable 9 RESULT: HLA-B27 antigen was not detected. ADDITIONAL INFORMATION Method: Flow Cytometry Performing Laboratory CLIA# [id number] Test Performed by: [facility] - [place] [id number] 10 REFERENCE VALUE <1.0 (Negative) 11 REFERENCE VALUE <1.0 (Negative) Test Performed by: [facility] - [facility] [employer] [address] [place] [address] 12 REFERENCE VALUE <4.0 (Negative) Test Performed by: [facility] [place] [address] 13 Negative serology. Celiac disease unlikely. However, approximately 10% of patients with celiac disease are seronegative. Also, patients who are already adhering to a gluten-free diet may be seronegative. If celiac disease is highly clinically suspected, consider HLA-DQ typing. Test Performed by: [facility] [place] [address] 14 Normal values may vary with age, season and geographic area. Titers above upper limits may be indicative of infection, however only a two dilution rise in titer is required to be considered significant. ASO titer will usually rise above upper limits within one week of exposure, increase to peak levels at 3-5 weeks and return to baseline level at 6-12 twelve months. 15 <1:80 (Negative) REFERENCE VALUE <1:80 (Negative) Test Performed by: [facility] [employer] - [facility] [address] [place] [address] 16 ADDITIONAL INFORMATION This test was developed and its performance characteristics determined by [facility] in a manner consistent with CLIA requirements. This test has not been cleared or approved by the U.S. Food and Drug Administration. 17 ADDITIONAL INFORMATION This test was developed and its performance characteristics determined by [facility] in a manner consistent with CLIA requirements. This test has not been cleared or approved by the U.S. Food and Drug Administration. 18 ADDITIONAL INFORMATION This test was developed and its performance characteristics determined by [facility] in a manner consistent with CLIA requirements. This test has not been cleared or approved by the U.S. Food and Drug Administration. Test Performed by: [facility] - [address] [address] 19 Therapeutic target for the treatment of diabetes mellitus patients is <7% HBA1C, and in selective patients <6.0%. Please refer to [place] [employer] diabetic care guidelines for further information. 20 [id number] 21 SEE RESULT BELOW Name: SOCORRO PAZ : [address]: Janak Pina MD Acct: [id number] Unit: [id number] AGE: 40 Location: [facility] Re04/29/16 SEX: F Status: REG SDC SPEC: [id number] KRANTHI: 04/29/160833 [facility] DR: Janak Pina MD REQ: [id number] RECD: 04/29/16 STATUS: VISHNU WALSH DR: Janak Villegas MD _ ORDERED: LEVEL I/2, LEVEL IV/2 COMMENTS: [id number] FINAL DIAGNOSIS 1. Breast, right hat parts cutter machine, excision: Foreign body as described above (Gross diagnosis). 2. Skin, right breast, scar revision: Skin and subcutaneous tissue with foreign body giant cell reaction. 3. Breast, left hat parts cutter machine, excision: Foreign body as described above (Gross diagnosis). 4. Skin, left breast, scar revision: Skin and subcutaneous tissue with foreign body giant cell reaction. PRE-OPERATIVE DIAGNOSIS Status post bilateral mastectomies GROSS DESCRIPTION 1. The specimen is received fresh labeled, Right Breast Tissue Requisition Approver, and consists of a 14.5 x 12.0 by up to 5.0 cm translucent ovoid saline implant. The outer surface is granular camacho-white. The following inscription is identified: [facility]. The remaining inscription is indecipherable. Per [...] tissue fragments. The skin is inked and wine sales representative CONTINUED ON NEXT PAGE * ML=Testing performed at Main Lab DEPARTMENT OF PATHOLOGY, [address] [place] [address] Edi Pace M.D. Director [facility] # [id number] RUN DATE: 04/30/16 [facility] LAB LIVE PAGE 2 Patient: SOCORRO PAZ [id number] (Continued) GROSS DESCRIPTION (Continued) GROSS DESCRIPTION (Continued) sections are submitted in one cassette. 3. The specimen is received fresh labeled, Left Breast Tissue Requisition Approver, and consists of a 14.5 x 12.0 by up to 5.0 cm translucent ovoid saline implant. The outer surface is granular camacho-white. The following inscription is identified: [facility] 550. The remaining inscription is indecipherable. Per [...] tissue fragments. The skin is inked and wine sales representative sections are submitted in one cassette. Signed (signature on file) Luciana Garcia MD 1517 END OF REPORT * ML=Testing performed at Main Lab DEPARTMENT OF PATHOLOGY, [address] [place] [address] Edi Pace M.D. Director [facility] # [id number] Procedures Date Code Description Status 10/06/2017 84672 Carpal Tunnel Release Completed 10/06/2017 68314 Carpal Tunnel Release Completed 12/15/2015 81156 Mastectomy Simple Complete Completed 10/27/2015 [id number] Mammogram Completed 10/23/2015 [id number] Mammogram Completed 05/02/2013 28690 ECHO Transthoracic, Real-Time 2D With Doppler And Color Completed Flow Encounters Type Date Location Provider Dx Diagnosis Office Visit 12/29/2018 Pulmonology And Brittny Almanza, R59.0 Localized enlarged 7:30a Sleep Services Of lymph nodes [facility] Office Visit 12/14/2018 Rheumatology Gwyn Mathur, R70.0 Elevated erythrocyte 8:00a [facility] sedimentation rate R76.0 Raised antibody titer M06.4 Inflammatory polyarthropathy M25.551 Pain in right hip M25.561 Pain in right knee M54.5 Low back pain 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 bilateral upper limbs Plan of Treatment Future Appointment(s):01/11/2019 11:30 am - Brittny Almanza MD at [facility]01/04/2019 1:00 pm - Brittny Almanza MD at [facility]01/25/2019 3:40 pm - Gwyn Kevan, M.D. at Rheumatology [facility]12/29/2018 - Brittny Almanza, MDR59.0 Localized enlarged lymph nodesNew Orders:Endobronchial Ultrasound (E[place]), Ordered: Follow up:10 days
[2019-01-19] MEDS ORDERED: Dexamethasone IV* 4 MG/ML 1 ML (4 MG) ONE (07:04)
[2019-01-19] MEDS ORDERED: Famotidine IV* 10 MG/ML 2 ML (20 mg) ONE (07:04)
[2019-01-19] MEDS ORDERED: Buffered Lidocaine 1% SYRIN* 1 ML/SYRINGE INTRADERM ONE (07:04)
[2019-01-19] MEDS ORDERED: Scopolamine 1.5 mg* PATCH ONE (07:04)
[2019-01-19] MEDS ORDERED: Heparin VIAL(*) 5000 UNITS/ML VIAL (FIVE THOUSAND) ONE (07:05)
[2019-01-19] MEDS ORDERED: Ondansetron INJ* 2 MG/ML VIAL ONE ×3 (07:09→21:27)
[2019-01-19] MEDS ORDERED: ceFAZolin 2 GM in NS PREMIX(*) 2 GM/100 ML BAG IVPB ONE (07:37)
[2019-01-19] MEDS ORDERED: Midazolam* 1 MG/ML 5 ML VIAL (5 MG) ONE (08:18)
[2019-01-19] MEDS ORDERED: fentaNYL* 50 MCG/ML 5 ML VIAL (250 MCG VIAL) ONE (08:18)
[2019-01-19] MEDS ORDERED: Lidocaine 1% w EPI 1:100,000* 30 ML VIAL ONE ×4 (08:18→11:54)
[2019-01-19] MEDS ORDERED: Propofol* 10 MG/ML 20 ML BTL ONE (08:19)
[2019-01-19] MEDS ORDERED: Lidocaine 1% INJ* 10 MG/ML 30 ML SDV ONE (08:19)
[2019-01-19] MEDS ORDERED: Bupivacaine 0.25% SDV PF* 10 ML VIAL INJ ONE ×2 (08:19→11:54)
[2019-01-19] MEDS ORDERED: Lidocaine 2% PF * 5 ML VIAL ONE (08:19)
[2019-01-19] MEDS ORDERED: EPHEDrine (Pressors)* 50 MG/ML VIAL ONE (08:52)
[2019-01-19] MEDS ORDERED: Phenylephrine 40 MCG/ML SYRINGE ONE (09:28)
[2019-01-19] MEDS ORDERED: KETAMINE HCL* 50 MG/ML 10 ML VIAL ONE (10:08)
[2019-01-19] MEDS ORDERED: fentaNYL* 50 MCG/ML 2 ML VIAL (100 MCG VIAL) ONE ×2 (10:39→12:38)
[2019-01-19] MEDS ORDERED: Naloxone* 0.4 MG/ML 1 ML VIAL IV PRN (12:29)
[2019-01-19] MEDS ORDERED: Acetaminophen IV 1GM/100ML * 1,000 MG/100 ML VIAL IVPB ONE (12:29)
[2019-01-19] MEDS ORDERED: PROCHLORPERAZINE INJ 5 MG/ML 2 ML VIAL ONE (12:38)
[2019-01-19] MEDS: fentaNYL* 50 MCG/ML 2 ML VIAL (100 MCG VIAL) IV PRN ×2 (12:40→13:19)
[2019-01-19] MEDS: PROCHLORPERAZINE INJ 5 MG/ML 2 ML VIAL IV PRN ×2 (12:47→12:59)
[2019-01-19] MEDS ORDERED: Acetaminophen TAB* 325 MG PO PRN (12:48)
[2019-01-19] MEDS ORDERED: HYDROmorphone INJ1* 1 MG/ML SYRINGE IV SLOW PU PRN (12:49)
[2019-01-19] MEDS ORDERED: Acetaminophen IV 1GM/100ML * 100 ML ONE (13:15)
--- NOTE | 2019-01-19 13:24 | BRIEFOPN ---
Brief Operative Note - Surgery Procedures: Procedures EXCISION OF LEFT AXILLARY LYMPHATIC, OPEN APPROACH, DIAGN (12/15/15) INSERTION OF TISSUE WELDER FABRICATOR INTO BI BREAST, OPEN APPROACH (12/15/15) RESECTION OF BILATERAL BREAST, OPEN APPROACH (12/15/15) RESECTION OF BILATERAL FALLOPIAN TUBES, PERC ENDO APPROACH (10/08/16) RESECTION OF BILATERAL OVARIES, PERC ENDO APPROACH (10/08/16) THYROID FIELD ASPIRATION (06/07/13) UNILAT THYROID LOBECTOMY (07/11/13) 01/19/19 Op Note Pre-op dx: left axillary malignant adenopathy Post-op dx: same Procedure: left axillary dissection and power port placement Surgeon: Paul Asst: none Anesth: general EBL: 25 cc complications: none ABx: given pre-op SCDs on during surgery Pt. tolerated procedure well and was transferred to Dr. Pina's [facility]
--- NOTE | 2019-01-19 14:01 | OP ---
CC: Janak Pina MD; Dr. Maggi Miller; Dr. Sahra Rodgers; Dr. Amador Villegas; Dr. Gwyn Mathur OPERATIVE REPORT: DATE OF OPERATION: 01/19/19 DATE OF : [birth year] SURGEON: Janak Pina MD PLODDING OPERATOR: IRENE Dominguez SECOND PARKS RECREATION COORDINATOR: Rohini Eaton ANESTHESIOLOGIST: Anastacio Holloway MD ANESTHESIA: General. PRE-OP DIAGNOSIS: Left breast cancer. POST-OP DIAGNOSIS: Left breast cancer. OPERATIVE PROCEDURE: Bilateral breast open capsulectomy and implant removals and excision of left breast mass. INDICATIONS FOR OPERATION: The patient is a 43-year-old female who was diagnosed with left breast ductal carcinoma in situ in 2016. She underwent bilateral mastectomy with Dr. Flores on 12/15/15 and I performed bilateral immediate breast reconstruction with tissue expanders and acellular dermal matrix slings. She healed well following that procedure and tolerated the expansion well. She underwent removal of tissue expanders and placement of permanent silicon gel implants on 04/29/16. Recently, she had an MRI which showed an enlarged irregular left axillary lymph node and a fine needle biopsy on 12/19/18 was read as metastatic adenocarcinoma. She consulted with Dr. Maggi Miller and is scheduled for left axillary dissection today. She, however, also complains of worsening arthralgias in multiple joints over the past 6 months and a recent workup revealed sarcoidosis. She requests bilateral breast capsulectomy and implant removals at the same time as her left axillary dissection. Preop examination of the bilateral breasts demonstrated well-healed silicone gel implant reconstructions. Both implants were noted to be soft with no signs of capsular contracture, infection, or seroma. There was a 1.5 cm firm cord like superficial mass, 1 cm superior to the central portion of the left mastectomy scar. ESTIMATED BLOOD LOSS: 100 cc. SPECIMENS: 1. Left breast implant, implant capsule, acellular dermal matrix, and left breast mass. 2. Right breast implant, implant capsule and acellular dermal matrix. DRAINS: Three Kb-Jones. COMPLICATIONS: None. DESCRIPTION OF PROCEDURE: The patient was taken to the operating room and placed on the operating room table in the supine position. General anesthesia was induced by Dr. Holloway. Bilateral breasts were prepped with ChloraPrep solution and draped sterilely. Attention was turned first towards the left breast. A 22 x 7.5 cm fusiform elliptical excision was made surrounding the mastectomy scar to remove redundant skin and subcutaneous tissue in preparation for closure of the mastectomy wound following implant removal. A minimum 2 cm margin was taken surrounding the left breast mass. Incision was made with scalpel, then dissection deepened through the subcutaneous tissue with electrocautery dissection. Dissection was continued down to the level of the AlloDerm and pectoralis major muscle under the superior flap and down to level of the AlloDerm under the inferior flap. The ellipse of full- thickness skin, subcutaneous tissue, AlloDerm and capsule was excised and was marked at the mid superior margin with the short suture and then a long suture was placed to identify the area of the palpable mass. The specimen was sent in formalin for routine pathologic study. Further capsulectomy was then performed using electrocautery and scissor dissection. The implant capsule was noted to be extremely thin with no signs of inflammation, thickening, contracture or other masses. The capsular tissue and further acellular dermal matrix was sent in formalin for routine pathologic study. At this point, Dr. Miller then scrubbed in to the case and performed the left axillary dissection through this wound. At that time, I moved to the right side. Attention was turned towards the right breast. Similar size fusiform elliptical excision was made on the right breast through the skin with the scalpel and then dissection continued down through the subcutaneous tissue with electrocautery dissection. Dissection was continued down to the level of the AlloDerm and the capsule. Almost complete capsulectomy was performed and the capsular tissue, AlloDerm and overlying ellipse of skin and subcutaneous tissue was excised and the implant removed. Both implants were noted to be completely intact. Again, the right implant capsule was noted to be extremely thin with no signs of thickening, contracture, seroma, or other masses. Hemostasis was obtained on both sides with electrocautery. The wounds were irrigated with copious saline solution. The wounds were then closed in multiple layers using buried interrupted sutures of 2-0 Vicryl in the fascia and deep dermal layers. Prior to complete wound closure, 10 mm flat Kb- Jones drains were placed in the bilateral breast wounds and sutured to the skin with 3-[address] Miller had placed a 10 mm flat Kb-Jones drain in the left axilla and also sutured that to the skin previously. Skin was then closed with running subcuticular 3-0 Monocryl and several interrupted sutures of 5-0 Vicryl Rapide placed. I then scrubbed out of the case and Dr. Miller proceeded with PowerPort placement on the right side. Following the PowerPort placement by Dr. Miller, I scrubbed back in to the case and applied a VAC Prevena dressing to both breasts. At the end of the case, 20 cc of 0.0625% Marcaine, 0.25% lidocaine, with epinephrine 1:400,000 solution was instilled into each Kb-Jones drain and left in place for 5 minutes and then the suction bulbs applied to all 3 drains. The patient tolerated the procedure well. There were no complications. All counts were reported as correct at the end of the procedure. The patient was taken to the recovery area in stable postoperative condition. [id number] #: [id number]
--- NOTE | 2019-01-19 14:10 | OP ---
CC: Dr. Amador Villegas; [facility] OPERATIVE REPORT: DATE OF OPERATION: 01/19/19 DATE OF : 73 SURGEON: Maggi Miller MD. HOSTESS CASHIER: There was no sourcing assistant for this case. PRE-OP DIAGNOSIS: Positive left axillary adenopathy. POST-OP DIAGNOSIS: Positive left axillary adenopathy. OPERATIVE PROCEDURE: Left axillary dissection and PowerPort placement. INDICATIONS: Ms. Oates is a 43-year-old woman with a history of left breast cancer who had underg one previous bilateral mastectomy and implant placement. She was found to have adenopathy, prompting the plan for surgical intervention once it proved positive for malignancy and at that time, it was e lected to undergo PowerPort placement for the purposes of administering chemotherapy, and she wished to have both implants removed. The procedure was coordinated with Dr. Pina, who did the implant removal, and myself for the axillary dissection and PowerPort placement. Of note, in her preop hist ory and physical, she was noted to have a nodule in the left mastectomy scar site, so plans were made for identifying this at the time of surgery, anticipating that it would be removed with the plastic surgical procedure. DESCRIPTION OF PROCEDURE: She was brought to the operating room, placed on the OR table in the supin e position and given general anesthesia. The chest wall was prepped and draped in the usual sterile fashion. Dr. Pina attended to her first and made the incision on the left side for implant kitty elsa. Once the implant was removed, the attention was turned to the axillary dissection. Retraction was provided superiorly and medially, exposing the left axilla. There was some scar tissue in the ar ea from previous sentinel node biopsy, but dissection from the level of the pectoralis muscle posteri stefan exposed the axillary fat pad. This was grasped with an Allis clamp and further dissection was c ompleted with a combination of sharp and blunt dissection to excise the axillary fat pad from the pec toralis muscle posteriorly and from the axillary vein inferiorly. This was done with a combination o f sharp and blunt dissection. Clips were used to control small lymphatic and blood vessels that appr oach the axillary fat pad. In the process of doing this, the long thoracic and thoracodorsal nerves were identified and preserved and noted to be functional during the case and after the specimen was r emoved. Once it was removed, it was handed off and a ZHAO drain was placed through a stab wound in the midaxillary line inferiorly. This case was then handed back to Dr. Pina, who needed to complet e the closure of the mastectomy site. Once that was done, attention was turned to PowerPort placemen t. It should be mentioned that once he had removed the skin from the left mastectomy site before rem oving the implant, the position of the nodule was identified and marked with a stitch and confirmed b y me. PowerPort placement was achieved by infiltrating the subcutaneous tissue with local anesthetic and then using a Seldinger technique, placing the wire into the right subclavian vein, this was chec ked with fluoroscopy. A port pocket was created by again infiltrating the skin with local anesthetic and making an incision and developing a flap inferiorly using electrocautery. Once the pocket was o f a size to accommodate the port, the catheter was tunneled from the pocket site to the wire exit sit e and then a dilator and introducer were placed over the wire. This was done under fluoroscopic visu alization and the wire and the dilator were removed. The catheter was advanced through the introduce r under fluoroscopic visualization since there appeared to be a kink in the introducer. It was withd rawn gradually as the catheter was advanced, ensuring that the catheter was fed well into the subclav robert vein into the superior vena cava. The introducer was peeled away. Position of the tip of the ca theter was checked and it was withdrawn to an appropriate depth. The catheter was trimmed to an appr opriate length and attached to the port. The port was then inserted into the port pocket and 2-0 Pro chantell stitch was used to anchor the port in the pocket. The function of the port was checked and foun d to be adequate, so closure was accomplished, 3-0 Vicryl was used to close the subcutaneous layer an d then the skin was closed with 4-0 Prolene in a subcuticular fashion. Steri-Strips and a dry steril e dressing were applied. All sponge and instrument counts were correct. The case was turned back ove r to Dr. Pina, who completed the dressing placement with a Prevena and the patient tolerated the procedure well. [id number]/[facility] #: [id number]
[2019-01-19] MEDS: Lactated Ringers 1000 ML Bag* 1,000 ML IV SCH ×2 (14:30→23:14)
[2019-01-19] MEDS ORDERED: ceFAZolin 2 GM PREMIX in ORs 2 GM/50 ML BAG IVPB SCH (17:00)
[2019-01-19] MEDS ORDERED: Metoclopramide IV* 5 MG/ML 2 ML VIAL IV PRN (17:18)
[2019-01-19] MEDS: ceFAZolin* 2 GM in NS 100 MLS Q8H (Pharmacy Admix) IVPB SCH (17:30)
[2019-01-19] MEDS: Ketorolac INJ* 30 MG/ML 1 ML VIAL IV PUSH PRN (18:22)
[2019-01-19] MEDS ORDERED: Ondansetron INJ* 2 MG/ML VIAL IV ONE (22:00)
[2019-01-19] MEDS ORDERED: Melatonin 3 MG TAB PO ONE (22:00)
[2019-01-20] MEDS: ceFAZolin* 2 GM in NS 100 MLS Q8H (Pharmacy Admix) IVPB SCH ×2 (00:32→08:34)
[2019-01-20] MEDS: Ketorolac INJ* 30 MG/ML 1 ML VIAL IV PUSH PRN ×2 (00:32→06:01)
[2019-01-20] MEDS ORDERED: Levothyroxine TAB* 75 MCG TAB PO SCH (06:00)
--- NOTE | 2019-01-20 07:23 | PN ---
Progress Note - Progress Note Date of Service: 01/20/19 Note: Surgery Ms. Oates reports she had some nausea, but much less than at the time of her mastectomies. She says the pain has been managed by toradol. Vital Signs 01/19/19 01/19/19 01/19/19 07:25 12:18 12:20 Temperature 97.0 F 96.8 F Pulse Rate 68 93 101 Respiratory 20 16 15 Rate Blood Pressure 127/82 134/79 124/72 (mmHg) O2 Sat by Pulse 97 99 98 Oximetry 01/19/19 01/19/19 01/19/19 12:25 12:30 12:35 Temperature Pulse Rate 87 85 Respiratory 21 19 16 Rate Blood Pressure 129/76 120/69 (mmHg) O2 Sat by Pulse 99 99 Oximetry 01/19/19 01/19/19 01/19/19 12:40 12:45 12:50 Temperature Pulse Rate 98 Respiratory 16 9 14 Rate Blood Pressure 115/72 (mmHg) O2 Sat by Pulse 99 Oximetry 01/19/19 01/19/19 01/19/19 12:58 13:00 13:15 Temperature Pulse Rate 78 73 Respiratory 14 17 14 Rate Blood Pressure 105/69 102/57 (mmHg) O2 Sat by Pulse 99 100 Oximetry 01/19/19 01/19/19 01/19/19 13:17 13:19 13:30 Temperature Pulse Rate 67 Respiratory 14 23 10 Rate Blood Pressure 107/49 (mmHg) O2 Sat by Pulse 100 100 Oximetry 01/19/19 01/19/19 01/19/19 13:45 14:00 14:10 Temperature Pulse Rate 73 69 Respiratory 17 9 14 Rate Blood Pressure 99/49 95/50 (mmHg) O2 Sat by Pulse 100 99 Oximetry 01/19/19 01/19/19 01/19/19 14:38 14:44 15:47 Temperature 98.0 F 97.8 F Pulse Rate 67 69 Respiratory 16 16 16 Rate Blood Pressure 91/46 102/54 (mmHg) O2 Sat by Pulse 98 99 Oximetry 01/19/19 01/19/19 01/19/19 16:56 18:28 19:34 Temperature 97.7 F 97.6 F Pulse Rate 73 74 Respiratory 14 16 16 Rate Blood Pressure 103/69 105/68 (mmHg) O2 Sat by Pulse 99 100 Oximetry 06/01/20/19 01/20/19 23:16 00:40 03:57 Temperature 98 F 98.7 F Pulse Rate 72 90 Respiratory 16 16 Rate Blood Pressure 97/43 104/57 (mmHg) O2 Sat by Pulse 95 99 97 Oximetry Chest wall: Dressing in place, no signs infection. Left axilla: no swelling, no signs infection. JPs: all with serosanguinous drainage. Intake & Output 01/19/19 01/20/19 01/20/19 22:59 06:59 14:59 Intake Total 1000 1575 Output Total 1560 1790 Balance -560 -215 Intake: IV Fluids 990 LR 990 IVPB 105 ABX - CEFAZOLIN 105 Oral 1000 480 Output: ZHAO #1 90 15 ZHAO #2 90 20 ZHAO #3 30 5 Urine 1350 1750 Other: # Bowel Movements 0 A/P: Doing well. Will provide sling for left arm. Can go home once seen and cleared by Dr. Tinajero. She can call the office on Tuesday and arrange to be seen Tuesday or Tuesday for drain evaluation. Jose E
[2019-01-20 07:35] VITALS: BP 110/56
[2019-01-20] MEDS ORDERED: Pantoprazole TAB * 40 MG TAB PO SCH (09:00)
[2019-01-22] MEDS ORDERED: Scopolamine PATCH Remove* 1 NOTE MISC PATCH OFF ONE (06:00)
== END 2019-01-20 09:50 | disposition home or self-care (01) | DRG 580 ==
LOC: AA 06:38 → EDSTATUS 08:30 → SSU 12:42
PROVIDERS: ADMIT Surgery; ATTEND Surgery
PROC: 07B60ZZ Excision of Left Axillary Lymphatic, Open Approach (ICD-10-PCS; principal; 2019-01-19 08:30)
PROC: 0HPU0JZ Removal of Synthetic Substitute from Left Breast, Open Approach (ICD-10-PCS; 2019-01-19 08:30)
PROC: 0HPT0JZ Removal of Synthetic Substitute from Right Breast, Open Approach (ICD-10-PCS; 2019-01-19 08:30)
PROC: 0HBU0ZZ Excision of Left Breast, Open Approach (ICD-10-PCS; 2019-01-19 08:30)
DX: C50.912 Malignant neoplasm of unspecified site of left female breast (principal); C77.3 Secondary and unspecified malignant neoplasm of axilla and upper limb lymph nodes; E89.0 Postprocedural hypothyroidism; Z85.3 Personal history of malignant neoplasm of breast; Z85.850 Personal history of malignant neoplasm of thyroid; Z90.13 Acquired absence of bilateral breasts and nipples; Z90.721 Acquired absence of ovaries, unilateral; Z80.3 Family history of malignant neoplasm of breast; Z80.8 Family history of malignant neoplasm of other organs or systems; Z82.3 Family history of stroke
CPT/HCPCS: 71045; 76000; 88300; 88304; 88307; 88360; A9270-GY; C1788; J0690; J0780; J1100; J1642; J1644; J1885; J2250; J2405; J2704; J2765; J3010; J3490